=== PATIENT | male | born 1965 | race Caucasian/White ===

== ENCOUNTER 2021-01-15 11:02 | Outpatient (REF) | payer OTHER, SELFPAY ==
[2021-01-15 11:45] LABS: MANUAL DIFF FLAG NO
[2021-01-15 11:53] LABS: Basophils Absolute Auto 0.1 X10*3/uL (0.0-0.2); Basophils Percent Auto 0.9 % (0-2); Eosinophils Absolute Auto 0.4 X10*3/uL (0.0-0.4); Eosinophils Percent Auto 6.5 % (0-4); Hematocrit 44.5 % (42-52); Hemoglobin 14.5 g/dl (14.0-18.0); Imm Gran Abs Auto 0.02 X10*3/uL (0.00-0.03); Imm Gran Pct Auto 0.4 % (0.0-0.4); Lymphocytes Absolute Auto 2.5 X10*3/uL (1.2-4.9); Lymphocytes Percent Auto 45.3 % (20-40); Mean Corpuscular HGB Conc 32.6 g/dl (31.0-36.0); Mean Corpuscular Hemoglobin 30.7 pg (27.0-33.0); Mean Corpuscular Volume 94.1 fL (80-98); Mean Platelet Volume 10.4 fL (9.4-12.4); Monocytes Absolute Auto 0.5 X10*3/uL (0.1-1.2); Monocytes Percent Auto 9.7 % (2-11); Neutrophils Absolute Auto 2.1 X10*3/uL (2.0-8.3); Neutrophils Percent Auto 37.2 % (45-73); Platelet Count 229 X10*3/uL (160-400); Red Blood Count 4.73 X10*6/uL (4.60-5.80); White Blood Count 5.5 X10*3/uL (4.8-10.8)
[2021-01-15 12:10] LABS: Alanine Aminotransferase 22 U/L (0-40); Albumin Level 4.3 g/dL (3.5-5.0); Alkaline Phosphatase 68 U/L (39-117); Anion Gap 8 (12-20); Aspartate Amino Transferase 22 U/L (5-37); Bilirubin Total 0.7 mg/dL (0.0-1.0); Blood Urea Nitrogen 13 mg/dL (9-16); Calcium 9.7 mg/dL (8.4-10.2); Carbon Dioxide 33 mmol/L (22-29); Chloride 103 mmol/L (96-108); Cholesterol 258 mg/dL; Estimated Glomerular Filt Rate > 60; Glucose Fasting 113 mg/dL (60-99); HDL Cholesterol 86 mg/dL; LDL Cholesterol Calculated 142 mg/dl; Sodium 139 mmol/L (135-145); Total Protein 7.2 g/dL (6.5-8.0); Triglycerides 151 mg/dL
[2021-01-15 12:30] LABS: Prostate Specific Antigen Scr 0.42 ng/mL (<0.05-4.0); Thyroid Stimulating Hormone 1.24 uIU/mL (0.32-4.0)
== END 2021-01-15 11:03 | disposition home or self-care (01) ==
LOC: HO.LAB 11:02
PROVIDERS: PCP Physician Assistant; Visit Provider Physician Assistant
DX: J45.40 Moderate persistent asthma, uncomplicated (principal); E78.00 Pure hypercholesterolemia, unspecified; Z12.5 Encounter for screening for malignant neoplasm of prostate
CPT/HCPCS: 36415; 80053; 80061; 84153; 84443; 85025

== ENCOUNTER 2021-05-15 08:58 | Outpatient (REF) | payer OTHER, SELFPAY ==
[2021-05-15 10:01] LABS: Hematocrit 43.6 % (42-52); Hemoglobin 14.3 g/dl (14.0-18.0); Mean Corpuscular HGB Conc 32.8 g/dl (31.0-36.0); Mean Corpuscular Hemoglobin 31.1 pg (27.0-33.0); Mean Corpuscular Volume 94.8 fL (80-98); Mean Platelet Volume 10.6 fL (9.4-12.4); Platelet Count 257 X10*3/uL (160-400); Red Cell Distribution Width 12.4 % (11.0-16.0); White Blood Count 6.5 X10*3/uL (4.8-10.8)
[2021-05-15 10:22] LABS: Alanine Aminotransferase 29 U/L (0-40); Albumin Level 4.4 g/dL (3.5-5.0); Alkaline Phosphatase 69 U/L (39-117); Anion Gap 12 (12-20); Aspartate Amino Transferase 29 U/L (5-37); Bilirubin Total 0.6 mg/dL (0.0-1.0); Blood Urea Nitrogen 12 mg/dL (9-16); Calcium 9.8 mg/dL (8.4-10.2); Carbon Dioxide 31 mmol/L (22-29); Chloride 102 mmol/L (96-108); Cholesterol 255 mg/dL; Estimated Glomerular Filt Rate > 60; Glucose Fasting 111 mg/dL (60-99); HDL Cholesterol 100 mg/dL; LDL Cholesterol Calculated 138 mg/dl; Potassium 4.7 mmol/L (3.3-5.1); Sodium 140 mmol/L (135-145); Total Protein 7.2 g/dL (6.5-8.0); Triglycerides 87 mg/dL
[2021-05-15 10:44] LABS: TSH reflex Free T4 0.92 uIU/mL (0.32-4.0)
== END 2021-05-15 08:59 | disposition home or self-care (01) ==
LOC: HO.LAB 08:58
PROVIDERS: PCP Physician Assistant; Visit Provider Physician Assistant
DX: E78.9 Disorder of lipoprotein metabolism, unspecified (principal); I10 Essential (primary) hypertension
CPT/HCPCS: 36415; 80053; 80061; 84443; 85027

== ENCOUNTER 2022-07-27 06:11 | Outpatient (REF) | payer OTHER, SELFPAY ==
[2022-07-27 07:19] LABS: Hematocrit 41.5 % (42.0-52.0); Hemoglobin 13.7 g/dl (14.0-18.0); Mean Corpuscular Hemoglobin 31.4 pg (27.0-33.0); Mean Corpuscular Volume 95.2 fL (80.0-98.0); Mean Platelet Volume 10.6 fL (9.4-12.4); Platelet Count 241 X10*3/uL (160-400); Red Blood Count 4.36 X10*6/uL (4.60-5.80); Red Cell Distribution Width 11.8 % (11.0-16.0); White Blood Count 5.7 X10*3/uL (4.8-10.8)
[2022-07-27 08:11] LABS: Alanine Aminotransferase 40 U/L (0-40); Alkaline Phosphatase 76 U/L (39-117); Anion Gap 15 (12-20); Aspartate Amino Transferase 70 U/L (5-37); Bilirubin Total 0.5 mg/dL (0.0-1.0); Blood Urea Nitrogen 10 mg/dL (9-16); Calcium 9.7 mg/dL (8.4-10.2); Carbon Dioxide 32 mmol/L (22-29); Chloride 99 mmol/L (96-108); Cholesterol 224 mg/dL; Estimated Glomerular Filt Rate > 60; Glucose Fasting 99 mg/dL (60-99); HDL Cholesterol 77 mg/dL; LDL Cholesterol Calculated 125 mg/dl; Potassium 4.4 mmol/L (3.3-5.1); Sodium 142 mmol/L (135-145); Total Protein 6.7 g/dL (6.5-8.0); Triglycerides 114 mg/dL
[2022-07-27 08:14] LABS: Estimated Average Glucose 108 mg/dL; Hemoglobin A1c % 5.4 %
[2022-07-27 08:18] LABS: TSH reflex Free T4 1.22 uIU/mL (0.32-4.0)
== END 2022-07-27 06:12 | disposition home or self-care (01) ==
LOC: HO.LAB 06:11
PROVIDERS: PCP Physician Assistant; Visit Provider Physician Assistant
DX: E78.9 Disorder of lipoprotein metabolism, unspecified (principal); J42 Unspecified chronic bronchitis; R73.09 Other abnormal glucose
CPT/HCPCS: 36415; 80053; 80061; 83036; 84443; 85027

== ENCOUNTER 2022-08-06 08:21 | Day surgery (SDC) | payer OTHER, SELFPAY ==
[2022-08-03 09:29] VITALS: BMI 23.9
--- NOTE | 2022-08-05 10:17 | HO.ANESPROP2 ---
Documented by User: Jacinta Porter NP 08/05/22 10:18 HPI - Anesthesia Eval Consult details Narrative: 57yo M for Colonoscopy PMFSH Active Problems Active Problems: All Active Problems (Updated 08/03/22 @ 09:28 by Brittni Barillas RN) Annual physical exam (Acute) COPD (chronic obstructive pulmonary disease) (Acute) Eczema (Acute) Onychomycosis (Acute) Borderline high cholesterol (Acute) Herpes simplex (Acute) Impaired glucose metabolism (Acute) Rash (Acute) GERD (gastroesophageal reflux disease) (Acute) Former smoker (Acute) Tubular adenoma of colon (Acute) Allergic rhinitis (Acute) Elevated LFTs (Acute) Past Medical History Medical History (Updated 08/03/22 @ 09:28 by Brittni Barillas RN) Asthma Back pain COPD (chronic obstructive pulmonary disease) GERD (gastroesophageal reflux disease) Family History Family History Father Alzheimer disease Surgical History Surgical History (Updated 08/03/22 @ 09:28 by Brittni Barillas RN) H/O colonoscopy History of esophagogastroduodenoscopy (EGD) Social History Social History Housing: House Alcohol intake: current Alcohol intake frequency: a few times a week Alcohol type: beer Patient Tobacco Use Status: Former Tobacco user (11/2020) Quit Date: 2020 e-Cigarette/Vaping Use: Never Used Second Hand Smoke Exposure: No Advance Directives: No Advance Directives Information Provided: Yes service: No Current occupational status: employed Current occupation: [employer] Current occupational exposures/hazards: No Cognitive needs: No Hearing needs: No Vision needs: No Meds Allergies Allergy/AdvReac Type Severity Reaction Status Date / Time No Known Allergies Allergy Verified 07/28/22 08:37 Home Medications Medication Instructions Recorded Confirmed Last Taken Type multivitamin 1 tab PO DAILY 08/03/22 08/03/22 Unknown History omeprazole 40 mg capsule,delayed 40 mg PO DAILY 08/03/22 08/03/22 Unknown History release Exam Exam Date and Time: August 05, 2022 1017 Height,Weight and Vital Signs: Height 5 ft 10 in Weight 75.75 kg Pertinent Lab Results Pertinent Lab Results: Laboratory Tests 07/27/22 07/27/22 06:26 06:26 WBC 5.7 Hgb 13.7 L Hct 41.5 L Plt Count 241 Sodium 142 Potassium 4.4 Chloride 99 Carbon Dioxide 32 H BUN 10 Creatinine 0.97 Assessment and Plan Assessment Anesthesia Assessment: Chart Reviewed Documented by User: Faith Bernard MD 08/06/22 08:55 [facility] Past Medical History Medical History (Updated 08/03/22 @ 09:28 by Brittni Barillas RN) Asthma Back pain COPD (chronic obstructive pulmonary disease) GERD (gastroesophageal reflux disease) Family History Family History Father Alzheimer disease Family history of problems with anesthesia: No Surgical History Surgical History (Updated 08/03/22 @ 09:28 by Brittni Barillas RN) H/O colonoscopy History of esophagogastroduodenoscopy (EGD) History of Problems with Anesthesia: No Social History Social History Housing: House Alcohol intake: current Alcohol intake frequency: a few times a week Alcohol type: beer Patient Tobacco Use Status: Former Tobacco user (11/2020) Quit Date: 2020 e-Cigarette/Vaping Use: Never Used Second Hand Smoke Exposure: No Advance Directives: No Advance Directives Information Provided: Yes service: No Current occupational status: employed Current occupation: [employer] Current occupational exposures/hazards: No Cognitive needs: No Hearing needs: No Vision needs: No Meds Allergies Allergy/AdvReac Type Severity Reaction Status Date / Time No Known Allergies Allergy Verified 07/28/22 08:37 Home Medications Medication Instructions Recorded Confirmed Last Taken Type multivitamin 1 tab PO DAILY 08/03/22 08/03/22 Unknown History omeprazole 40 mg capsule,delayed 40 mg PO DAILY 08/03/22 08/03/22 Unknown History release Exam Airway Mallampati Class: II TM Dist: >3cm Neck ROM: Full Assessment and Plan Assessment Anesthesia Assessment: Anesthesia Plan Discussed Final Anesthetic Review Family History of Problems with Anesthesia: No History of Problems with Anesthesia: No NPO: Yes ASA Class: II Final Preanesthetic Review: No Changes in Pt Med Stat, Meds/Allgs Chart Reviewed, Consent Obtained/Reviewed and Anes Risks/Benef Reviewed Patient Risk: Intermediate Procedure Risk: Low Anesthetic Plan Anesthetic Plan: MAC: Disposition: Standard PACU
[2022-08-06 09:01] VITALS: BP 134/84; PULSE 84; RESP 18; TEMP 36.6; O2SAT 95
[2022-08-06 10:20] VITALS: BP 110/64; PULSE 71; RESP 16; TEMP 36.6; O2SAT 97
--- NOTE | 2022-08-06 10:21 | PM.OP ---
Brief Operative Note Date of Service: 08/06/22 Pre-op diagnosis: Screening Post-op diagnosis: other (Diverticulosis) Procedure: Colonoscopy to the cecum Surgeon: Richar Talbot Anesthesia: MAC Was an Reel Cutter used for this Procedure?: No Estimated blood loss (mL): 0 Pathology: none sent Condition: stable Disposition: PACU
[2022-08-06 10:35] VITALS: BP 129/79; PULSE 66; RESP 14; TEMP 36.6; O2SAT 97
--- NOTE | 2022-08-06 11:13 | OP_ITS ---
SURGEON: Richar Talbot MD INDICATIONS: The patient presents for evaluation of colorectal cancer screening and personal history of tubular adenoma of the colon. Full consent has been obtained from him for this, including risks of bleeding and perforation. PREOPERATIVE DIAGNOSIS: Personal history of tubular adenoma of the colon and colorectal cancer screening. POSTOPERATIVE DIAGNOSIS: PROCEDURE PERFORMED: Colonoscopy to the cecum. ESTIMATED BLOOD LOSS: COMPLICATIONS: ANESTHESIA: Monitored anesthesia care. ASSISTANTS: SPECIMENS: POSTOPERATIVE DIAGNOSES: Personal history of tubular adenoma of the colon and colorectal cancer screening, diverticulosis, and internal hemorrhoids. DESCRIPTION OF PROCEDURE: The patient was placed in the left lateral decubitus position. The digital rectal exam revealed no abnormalities. The Olympus video pediatric colonoscope was entered into the rectum and advanced to the cecum with the assistance of abdominal pressure. Once in the cecum, I did identify a normal-appearing cecal pouch with appendiceal orifice and a normal-appearing ileocecal valve. The entire cecum and ileocecal valve were well visualized and appeared normal. The scope was slowly withdrawn assessing all mucosal surfaces carefully. Preparation throughout the colon was very good, although there were some areas of liquid stool, which were irrigated and suctioned away as best as possible. I did not visualize any sign of polyps, colitis, or angiodysplasia. The proximal ascending colon did not seem to have any residual polyp tissue from his previous polypectomies. There was a mild amount of sigmoid diverticulosis. In the rectum, the scope was retroflexed visualizing internal hemorrhoids but no other pathology. The rectal mucosa appeared normal. The scope was straightened and withdrawn from the patient. He tolerated the procedure well and was returned to the recovery area in stable condition. IMPRESSION: 1. Diverticulosis. 2. Internal hemorrhoids. PLAN: I would recommend a repeat colonoscopy in 3 years for further surveillance given the previous history of the flat tubular adenoma. He would see me otherwise on a p.r.n. basis. Richar Talbot MD RMIsabel/GRZEGORZL / [id number]
== END 2022-08-06 11:15 | disposition home or self-care (01) ==
PROVIDERS: PCP Physician Assistant; Visit Provider Internal Medicine
PROC: 0DJD8ZZ Inspection of Lower Intestinal Tract, Via Natural or Artificial Opening Endoscopic (ICD-10-PCS; CPT 45378; principal; 2022-08-06 09:30)
DX: Z12.11 Encounter for screening for malignant neoplasm of colon (principal); Z86.010 Personal history of colon polyps; K57.30 Diverticulosis of large intestine without perforation or abscess without bleeding; K64.8 Other hemorrhoids; K21.9 Gastro-esophageal reflux disease without esophagitis; J44.9 Chronic obstructive pulmonary disease, unspecified; M54.9 Dorsalgia, unspecified; G89.29 Other chronic pain; Z79.51 Long term (current) use of inhaled steroids; Z79.899 Other long term (current) drug therapy; Z87.891 Personal history of nicotine dependence
CPT/HCPCS: 45378

== ENCOUNTER 2023-02-16 07:09 | Outpatient (REF) | payer OTHER, SELFPAY ==
[2023-02-16 07:35] LABS: Hematocrit 41.7 % (42.0-52.0); Hemoglobin 13.9 g/dl (14.0-18.0); Mean Corpuscular HGB Conc 33.3 g/dl (31.0-36.0); Mean Corpuscular Hemoglobin 31.4 pg (27.0-33.0); Mean Corpuscular Volume 94.1 fL (80.0-98.0); Mean Platelet Volume 9.7 fL (9.4-12.4); Platelet Count 274 X10*3/uL (160-400); Red Blood Count 4.43 X10*6/uL (4.60-5.80); Red Cell Distribution Width 12.4 % (11.0-16.0)
[2023-02-16 08:04] LABS: Alanine Aminotransferase 25 U/L (0-40); Albumin Level 4.3 g/dL (3.5-5.0); Alkaline Phosphatase 83 U/L (39-117); Anion Gap 10 (12-20); Aspartate Amino Transferase 28 U/L (5-37); Bilirubin Total 0.9 mg/dL (0.0-1.0); Blood Urea Nitrogen 12 mg/dL (9-16); Calcium 9.6 mg/dL (8.4-10.2); Carbon Dioxide 31 mmol/L (22-29); Chloride 105 mmol/L (96-108); Cholesterol 233 mg/dL; Estimated Glomerular Filt Rate > 60; Glucose Fasting 104 mg/dL (60-99); HDL Cholesterol 84 mg/dL; LDL Cholesterol Calculated 120 mg/dl; Potassium 4.3 mmol/L (3.3-5.1); Sodium 142 mmol/L (135-145); Triglycerides 145 mg/dL
[2023-02-16 08:23] LABS: Prostate Specific Antigen Scr 0.24 ng/mL (<0.05-4.0); TSH reflex Free T4 2.23 uIU/mL (0.32-4.0)
== END 2023-02-16 07:10 | disposition home or self-care (01) ==
LOC: HO.LAB 07:09
PROVIDERS: PCP Physician Assistant; Visit Provider Physician Assistant
DX: E78.9 Disorder of lipoprotein metabolism, unspecified (principal); R73.09 Other abnormal glucose; K21.9 Gastro-esophageal reflux disease without esophagitis; Z12.5 Encounter for screening for malignant neoplasm of prostate
CPT/HCPCS: 36415; 80053; 80061; 84153; 84443; 85027

== ENCOUNTER 2023-08-22 07:46 | Outpatient (REF) | payer OTHER, SELFPAY ==
[2023-08-22 08:32] LABS: Hematocrit 41.4 % (42.0-52.0); Hemoglobin 13.8 g/dl (14.0-18.0); Mean Corpuscular HGB Conc 33.3 g/dl (31.0-36.0); Mean Corpuscular Hemoglobin 31.7 pg (27.0-33.0); Mean Platelet Volume 10.5 fL (9.4-12.4); Platelet Count 266 X10*3/uL (160-400); Red Blood Count 4.36 X10*6/uL (4.60-5.80); Red Cell Distribution Width 12.2 % (11.0-16.0); White Blood Count 6.1 X10*3/uL (4.8-10.8)
[2023-08-22 09:08] LABS: Creatinine Urine 332.76 mg/dL; Microalbum/Creatinine Ratio Ur 2.7 ug/mg cr (<30)
[2023-08-22 09:11] LABS: Alanine Aminotransferase 16 U/L (0-40); Albumin Level 4.2 g/dL (3.5-5.0); Alkaline Phosphatase 78 U/L (39-117); Anion Gap 12 (12-20); Aspartate Amino Transferase 21 U/L (5-37); Bilirubin Total 0.4 mg/dL (0.0-1.0); Blood Urea Nitrogen 12 mg/dL (9-16); Calcium 9.6 mg/dL (8.4-10.2); Carbon Dioxide 30 mmol/L (22-29); Chloride 105 mmol/L (96-108); Cholesterol 207 mg/dL (<200); Estimated Glomerular Filt Rate > 60; Glucose Fasting 105 mg/dL (60-99); HDL Cholesterol 83 mg/dL (>40); LDL Cholesterol Calculated 107 mg/dL (<100); Potassium 3.9 mmol/L (3.3-5.1); Sodium 143 mmol/L (135-145); Triglycerides 88 mg/dL (<150)
== END 2023-08-22 07:47 | disposition home or self-care (01) ==
LOC: HO.LAB 07:46
PROVIDERS: PCP Physician Assistant; Visit Provider Physician Assistant
DX: E78.9 Disorder of lipoprotein metabolism, unspecified (principal); I10 Essential (primary) hypertension
CPT/HCPCS: 36415; 80053; 80061; 82043; 82570; 85027

== ENCOUNTER 2023-08-23 07:46 | Outpatient (AMB) | payer OTHER, SELFPAY ==
--- NOTE | 2023-08-23 07:53 | MHC.PC.OV ---
Vital Signs 08/23/23 07:54 Height 5 ft 10 in Weight 163 lb BMI 23.4 BP 144/82 H Blood Pressure Location Lt brachial Position Sitting Pulse 78 Pulse Source Pulse Oximeter Pulse Oximetry (%) 98 Oxygen Delivery Method Room Air Intake Visit Reasons: Annual Exam Allergies No Known Allergies Allergy (Verified 08/23/23 08:01) Medication List - Last Reconciled 08/23/23 by Luke Alvarez PA-C albuterol sulfate 90 mcg/actuation 2 puffs inhalation Q4-6H PRN 30 days albuterol sulfate 2.5 mg (3 mL) inhalation Q6H PRN 30 days lisinopril 5 mg PO DAILY 30 days montelukast 10 mg PO DAILY 90 days multivitamin 1 tab PO DAILY omeprazole 40 mg PO DAILY Tobacco use date assessed: 02/17/23 Dental Screening Dental Screen Date: 08/23/23 Did you have a dental visit in the last 12 months?: No Did you have a dental problem in the last 6 months where you did not have access to dental care?: No Was dental information given to patient?: Patient has dentist HPI Annual Exam HPI Details Patient is a 58-year-old male here today for routine annual physical.? Patient has a past medical history significant for COPD, former smoker, GERD.. Concern--> reports over the last nearly 2 weeks having nasal congestion and sinus pain. Has been using [id number] allergy medication and nasal spray without much relief. Hypertension: Noted slightly elevated blood pressure today in office. He was started on lisinopril 5 mg though has for ran out of medication over the last few days and has not been taking it. He denies any headaches, chest discomforts or shortness of breath. .. COPD: Report his breathing is stable. Has been abstaining from cig over the last 3 years.? Has been compliant with his maintenance inhaler and p.r.n. use of his albuterol inhaler. Reports allergic rhinitis symptoms it has been using [id number] antihistamines ? Decongestant. .. Former smoker:? Did smoke for little over 20 years, unclear if he has smoked a pack a day.? He is likely a candidate for lung cancer screening and is considering being referred.? Colonoscopy: Done in 2021, repeat 3 years for surveillance Vaccines: Up-to-date with COVID vaccine , needs tetanus vaccine, up-to-date with pneumonia vaccine, considering shingles and flu vaccine Laboratory Tests 02/16/23 02/16/23 02/16/23 07:15 07:15 07:15 RBC Hgb Creatinine Fasting Glucose 104 H Cholesterol 233 LDL Cholesterol, C alc 120 08/22/23 08/22/23 08/22/23 07:57 07:57 07:57 RBC 4.36 L Hgb 13.8 L Creatinine 0.93 Fasting Glucose 105 H Cholesterol 207 H LDL Cholesterol, C alc 107 H [facility] Medical History Elevated LFTs GERD (gastroesophageal reflux disease) Back pain COPD (chronic obstructive pulmonary disease) Asthma Surgical History History of esophagogastroduodenoscopy (EGD) H/O colonoscopy Family History Father Alzheimer disease Social History (Updated 08/23/23 @ 08:08 by Luke Alvarez PA-C) Housing: House 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 Do you presently have visiting nurse or other home services: No Alcohol intake: current Alcohol intake frequency: 0-2 drinks per day Alcohol type: beer Patient Tobacco Use Status: Former Tobacco user Quit Date: 2020 Tobacco use type: Cigarette e-Cigarette/Vaping Use: Never Used Second Hand Smoke Exposure: No service: No Current occupational status: employed Current occupation: [employer] Current occupational exposures/hazards: No Cognitive needs: No Hearing needs: No Vision needs: No Questionnaire PHQ-9 Over the last 2 weeks, how often have you been bothered by any of the following problems? 1. Little interest or pleasure in doing things: not at all 2. Feeling down, depressed, or hopeless: not at all 3. Trouble falling or staying asleep, or sleeping too much: not at all 4. Feeling tired or having little energy: not at all 5. Poor appetite or overeating: not at all 6. Feeling bad about yourself - or that you are a failure or have let yourself or your family down: not at all 7. Trouble concentrating on things, such as reading the newspaper or watching television: not at all 8. Moving or speaking so slowly that other people could have noticed. Or the opposite - being so fidgety or restless that you have been moving around a lot more than usual: not at all 9. Thoughts that you would be better off or of hurting yourself in some way: not at all Total score: 0 Depression Screening Interpretation: Negative Depression Screening Done: Yes 17474 - PHQ-9 Billing: Yes Source: Developed by Drs. Richar Zuniga, Vicenta Lopez, Ghanshyam Karimi and colleagues, with an educational amanda from [employer]. Thrive Questionnaire Date Thrive assessed: 02/17/23 AUDIT C Alcohol Use Questionnaire (AUDIT-C) 1. How often do you have a drink containing alcohol?: Monthly or less 2. How many drinks containing alcohol do you have on a typical day when you are drinking?: 1 or 2 3. How often do you have six or more drinks on one occasion?: Never Total Score: 1 JESSICA-7 AMB Questionnaire JESSICA-7 Date JESSICA - 7 assessed: 02/17/23 Source: Developed by Drs. Richar Zuniga, Vicenta Lopez, Ghanshyam Karimi and colleagues, with an educational amanda from [employer]. Review of Systems Const Denies body aches, Denies chills, Denies excessive sweating, Denies fatigue, Denies fever(s) and Denies headache(s) Eyes Denies blurry vision ENT Denies dysphagia, Denies vertigo, Denies dizziness, Denies headache(s), Denies hearing loss and Denies tinnitus Card Denies chest pain, Denies chest pain with activity, Denies syncope, Denies irregular heart rhythm and Denies dyspnea Resp Denies chest congestion, Denies cough, Denies hemoptysis, Denies dyspnea and Denies wheezing GI Denies abdominal pain, Denies melena, Denies hematochezia, Denies coffee ground emesis, Denies dysphagia, Denies diarrhea, Denies nausea and Denies vomiting Denies difficulty urinating, Denies dysuria, Denies urinary frequency, Denies urinary hesitancy and Denies urinary urgency Musc Denies arthralgias, Denies limited range of motion, Denies muscle cramps and Denies muscle weakness Skin/Breast Denies rash and Denies skin ulcer Neuro Denies Abnormal speech present, Denies confusion, Denies vertigo, Denies dizziness, Denies syncope, Denies headache(s), Denies memory loss and Denies seizure-like activity Psych Denies anxiety, Denies confusion, Denies depression, Denies memory loss, Denies panic attacks and Denies paranoia Endo Denies excessive sweating, Denies fatigue, Denies flushing, Denies polydipsia and Denies polyuria Aller/Immun Denies wheezing Physical exam (Primary Care) Vital Signs: Last Vital Signs Pulse 78 08/23/23 07:54 BP 144/82 H 08/23/23 07:54 Pulse Ox 98 08/23/23 07:54 Oxygen Delivery Method Room Air 08/23/23 07:54 BMI result Body Mass Index 23.4 Tobacco/Smoking Status: Tobacco use Status Tobacco use date assessed 02/17/23 08/23/23 07:57 Patient Tobacco Use Status Former Tobacco user 08/23/23 07:57 Tobacco use type Cigarette 08/23/23 07:57 e-Cigarette/Vaping Use Never Used 08/23/23 07:57 PHQ-9: PHQ-9 Score PHQ-9: Total score 0 08/23/23 07:57 Depression Screening Interpretation: Negative Thrive Assessment: Date of Thrive Assessment Date Thrive assessed 02/17/23 08/23/23 07:57 Const General: cooperative, comfortable, no acute distress, alert and awake; No confusion Orientation/consciousness: oriented to person, oriented to place, patient oriented x3 and No confusion HENMT Head: Yes normocephalic Ears: external ears normal and TM's normal bilaterally Face and sinus: No sinus tenderness Mouth: Normal oral and palatal mucosa present and tongue normal Teeth and gingiva: dentition normal and gingiva normal Throat: Yes posterior oropharynx normal, Yes tonsils normal and Yes uvula midline Eyes Conjunctivae: conjunctivae normal Sclerae: sclerae normal Pupils: Equal, round and reactive pupils present EOM: EOMs intact bilaterally Direct Ophthalmoscopy: No no photophobia Neck Neck: Yes no lymphadenopathy, No tender and Yes no JVD Thyroid: Thyroid normal Carotids: no bruits Chest Chest palpation & inspection: no tenderness Resp Effort & Inspection: normal respiratory effort, no audible wheezes, not labored and no stridor Auscultation: no crackles, no rales, no rhonchi and no wheezes Cardio Jugular venous distension: no JVD Rate: regular rate, not bradycardic and not tachycardic Rhythm: regular rhythm Bruits: no carotid bruits Peripheral pulses: Peripheral pulses 2+ throughout GI Inspection: Yes normal to inspection, No abdominal wall ecchymosis and No visible herniation Palpation (GI): Soft to palpation, nontender, no guarding, not rigid and No hepatosplenomegaly present Auscultation: normoactive bowel sounds General: Yes no CVA tenderness Back/Spine/Pelvis Back: no CVA tenderness and No back tenderness Cervical Spine: cervical ROM normal Thoracic/Lumbar Spine: thoracic and lumbar spine normal to inspection, straight leg raise negative bilaterally, No thoraco-lumbar ROM limited and No lumbar spinal tenderness Skin Lesions: no lesions Rashes: no rashes Wounds: no wounds Neuro General: oriented to person, oriented to place, patient oriented x3, CN's II-XI intact bilaterally and No confusion Cranial nerves: Yes Equal, round and reactive pupils present and Yes Normal accommodation reflex present Cognition (Neuro): normal cognition Speech: No Abnormal speech present Gait exam (Neuro): Normal gait present Motor exam (neuro): 5/5 motor strength present throughout Extrem Right upper extremity: full ROM; no cyanosis Left upper extremity: full ROM; no cyanosis Right lower extremity: no edema Left lower extremity: no edema Psych Appearance: grossly normal Mental Status: mental status grossly normal Affect: normal affect Attitude: cooperative Thought process: Normal thought process present Assessment and Plan Assessment & Plan (1) Annual physical exam: Code(s): Z00.00 - Encounter for general adult medical examination without abnormal findings (2) COPD (chronic obstructive pulmonary disease): Code(s): J44.9 - Chronic obstructive pulmonary disease, unspecified Qualifiers: COPD type: chronic bronchitis Chronic bronchitis type: unspecified Qualified Code(s): J42 - Unspecified chronic bronchitis Plan: Patient reports only taking albuterol inhaler from time to time due to change in weather allergies. He does not taking maintenance inhaler any more. Pulmonary status has been much improved since he stopped smoking. Denies any recent exacerbations and is a OPD (3) HTN (hypertension): Code(s): I10 - Essential (primary) hypertension Qualifiers: Hypertension type: primary hypertension Qualified Code(s): I10 - Essential (primary) hypertension Plan: Pressure slightly elevated today in office. Has been out blood pressure medication over the last few days. He will restart lisinopril 5 mg daily. Goal blood pressures to be below 140/90 (4) Impaired glucose metabolism: Code(s): R73.09 - Other abnormal glucose Plan: Patient's most recent fasting blood sugar at 105. He will work on lifestyle modifications to reduce his borderline high fasting blood sugar.. (5) Borderline high cholesterol: Code(s): E78.9 - Disorder of lipoprotein metabolism, unspecified Plan: Patient's fasting lipid panel much improved from previous. Total cholesterol still slightly borderline high. Continue to work on lifestyle modifications to reduce his high cholesterol foods in his diet. (6) Sinus infection: Code(s): J32.9 - Chronic sinusitis, unspecified Qualifiers: Sinusitis location: frontal Chronicity: acute Recurrence: non-recurrent Qualified Code(s): J01.10 - Acute frontal sinusitis, unspecified Plan: Recently having nasal congestion and sinus pain over the last 10 days. Will supply patient with a Z-Connor and advised on nasal spray and allergy medication. Orders: Orders Complete Blood Count no Diff Today J42 - Unspecified chronic bronchitis Microalbumin, Random (w Creat) Today I10 - Essential (primary) hypertension Hemoglobin A1c Today R73.09 - Other abnormal glucose Lipid Panel Today E78.9 - Disorder of lipoprotein metabolism, unspecified Prostate Specific Antigen Scr Today E78.9 - Disorder of lipoprotein metabolism, unspecified, Z12.5 - Encounter for screening for malignant neoplasm of prostate Medications: New azithromycin For 250 mg dose pack: take 500 mg today (day 1), then 250 mg for 4 days (days 2-5) PO 6 tabs 0RF J32.9 - Chronic sinusitis, unspecified Changed From lisinopril 5 mg PO DAILY 30 days 30 tabs 3RF I10 - Essential (primary) hypertension To lisinopril 5 mg PO DAILY 90 days 90 tabs 1RF I10 - Essential (primary) hypertension From albuterol sulfate 90 mcg/actuation 2 puffs inhalation Q4-6H 30 days PRN 8.5 grams 3RF shortness of breath or wheezing J42 - Unspecified chronic bronchitis To albuterol sulfate 90 mcg/actuation 2 puffs inhalation Q4-6H 90 days PRN 3 inhalers 1RF shortness of breath or wheezing J42 - Unspecified chronic bronchitis Coding Level of Care Code Est Pt Prev Care 40-64y(87771) Diagnoses Annual physical exam Z00.00 Chronic bronchitis, unspecified chronic bronchitis type J42 COPD type: chronic bronchitis Chronic bronchitis type: unspecified Primary hypertension I10 Hypertension type: primary hypertension Impaired glucose metabolism R73.09 Borderline high cholesterol E78.9 Acute non-recurrent frontal sinusitis J01.10 Sinusitis location: frontal Chronicity: acute Recurrence: non-recurrent
[2023-08-23 07:54] VITALS: BP 144/82; PULSE 78; O2SAT 98; BMI 23.4
== END 2023-08-23 08:22 | disposition home or self-care (01) ==
PROVIDERS: PCP Physician Assistant; Visit Provider Physician Assistant
DX: Z00.00 Encounter for general adult medical examination without abnormal findings (principal); J42 Unspecified chronic bronchitis; I10 Essential (primary) hypertension; R73.09 Other abnormal glucose; E78.9 Disorder of lipoprotein metabolism, unspecified; J01.10 Acute frontal sinusitis, unspecified
CPT/HCPCS: 99396

== ENCOUNTER 2024-02-21 09:13 | Outpatient (REF) | payer OTHER, SELFPAY ==
[2024-02-21 09:52] LABS: Hematocrit 39.3 % (42.0-52.0); Hemoglobin 13.2 g/dl (14.0-18.0); Mean Corpuscular HGB Conc 33.6 g/dl (31.0-36.0); Mean Corpuscular Hemoglobin 31.6 pg (27.0-33.0); Mean Platelet Volume 10.2 fL (9.4-12.4); Platelet Count 212 X10*3/uL (160-400); Red Blood Count 4.18 X10*6/uL (4.60-5.80); Red Cell Distribution Width 12.2 % (11.0-16.0)
[2024-02-21 10:10] LABS: Estimated Average Glucose 117 mg/dL; Hemoglobin A1c % 5.7 % (<6.0)
[2024-02-21 10:38] LABS: Cholesterol 227 mg/dL (<200); HDL Cholesterol 102 mg/dL (>40); LDL Cholesterol Calculated 113 mg/dL (<100); Triglycerides 62 mg/dL (<150)
[2024-02-21 10:47] LABS: Creatinine Urine 14.27 mg/dL; Microalbumin Urine < 5.0 mg/L
[2024-02-21 11:02] LABS: Prostate Specific Antigen Scr 0.27 ng/mL (<0.05-4.0)
== END 2024-02-21 09:14 | disposition home or self-care (01) ==
LOC: HO.LAB 09:13
PROVIDERS: Visit Provider Physician Assistant
DX: Z12.5 Encounter for screening for malignant neoplasm of prostate (principal); J42 Unspecified chronic bronchitis; R73.09 Other abnormal glucose; E78.9 Disorder of lipoprotein metabolism, unspecified; R42 Dizziness and giddiness
CPT/HCPCS: 36415; 80061; 82043; 82570; 83036; 84153; 85027

== ENCOUNTER 2024-02-22 07:45 | Outpatient (AMB) | payer OTHER, SELFPAY ==
--- NOTE | 2024-02-22 07:49 | A.OFFPC_ITS ---
Vital Signs 02/22/24 07:50 Height 5 ft 10 in Weight 162 lb BMI 23.2 BP 150/78 H Blood Pressure Location Lt brachial Position Sitting Pulse 91 Pulse Source Pulse Oximeter Pulse Oximetry (%) 97 Oxygen Delivery Method Room Air Intake Visit Reasons: f/u COPD / HTN Intake Note: Patient just finished drinking coffee. Allergies No Known Allergies Allergy (Verified 02/22/24 07:59) Medication List - Last Reconciled 02/22/24 by Luke Alvarez PA-C albuterol sulfate 90 mcg/actuation 2 puffs inhalation Q4-6H PRN 90 days albuterol sulfate 2.5 mg (3 mL) inhalation Q6H PRN 30 days lisinopril 5 mg PO DAILY 90 days montelukast 10 mg PO DAILY 90 days multivitamin 1 tab PO DAILY omeprazole 40 mg PO DAILY Tobacco use date assessed: 02/22/24 Dental Screening Dental Screen Date: 02/22/24 Did you have a dental visit in the last 12 months?: No Did you have a dental problem in the last 6 months where you did not have access to dental care?: No Was dental information given to patient?: Patient has dentist HPI f/u COPD / HTN HPI Details Patient is a 58-year-old male here today for follow-up visit.? Patient has a past medical history significant for COPD, former smoker, GERD.. Concern--> Has allergies and is combative with allergy medication in nasal saline spray Hypertension: Noted slightly elevated blood pressure today in office. Continues on lisinopril 5 mg, had a few cups of coffee this morning. Does not monitor his blood pressure at home is willing to start doing so. Will consider increasing his lisinopril to 10 mg if blood pressures remain above 140 systolic . He denies any headaches, chest discomforts or shortness of breath. .. Borderline high cholesterol: Most recent lipids showing borderline high cholesterol. Patient will work better eating habits to reduce his cholesterol .. COPD: Quit smoking in 2020, Report his breathing is stable. Continues to abstain from cigarette smoking. Has been compliant with his maintenance inhaler and p.r.n. use of his albuterol inhaler. .. Former smoker:? Quit smoking in 2020, Did smoke for little over 20 years, unclear if he has smoked a pack a day.? He is likely a candidate for lung cancer screening and is considering being referred. 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 Do you presently have visiting nurse or other home services: No Alcohol intake: current Alcohol intake frequency: 0-2 drinks per day Alcohol type: beer Patient Tobacco Use Status: Former Tobacco user Quit Date: 2020 Tobacco use type: Cigarette e-Cigarette/Vaping Use: Never Used Second Hand Smoke Exposure: No service: No Current occupational status: employed Current occupation: [employer] Current occupational exposures/hazards: No Cognitive needs: No Hearing needs: No Vision needs: Yes Questionnaire PHQ-9 Over the last 2 weeks, how often have you been bothered by any of the following problems? 1. Little interest or pleasure in doing things: not at all 2. Feeling down, depressed, or hopeless: not at all 3. Trouble falling or staying asleep, or sleeping too much: not at all 4. Feeling tired or having little energy: not at all 5. Poor appetite or overeating: not at all 6. Feeling bad about yourself - or that you are a failure or have let yourself or your family down: not at all 7. Trouble concentrating on things, such as reading the newspaper or watching television: not at all 8. Moving or speaking so slowly that other people could have noticed. Or the opposite - being so fidgety or restless that you have been moving around a lot more than usual: not at all 9. Thoughts that you would be better off or of hurting yourself in some way: not at all Total score: 0 Depression Screening Interpretation: Negative Depression Screening Done: Yes 61168 - PHQ-9 Billing: Yes Source: Developed by Drs. Richar Zuniga, Vicenta Lpoez, Ghanshyam Karimi and colleagues, with an educational amanda from [employer]. Thrive Questionnaire Date Thrive assessed: 02/22/24 I am a: Patient What is your living situation today?: I have a steady place to live Within the past 12 months, did the food you bought not last and you didn't have the money to get more?: Never true Within the past 12 months, did you worry whether your food would run out before you got money to buy more?: Never true Do you have trouble paying for medicines?: No Do you have trouble getting transportation to medical appointments?: No Do you have trouble paying your heating and electricity bill?: No Do you have trouble taking care of your child, family member or friend?: No Do you have trouble with day-to-day activities such as bathing, preparing meals, shopping, managing finances, etc.?: No Are you currently unemployed and looking for a job?: No Are you interested in more education?: No Currently or been in a relationship where the following occur: no concerns reported THRIVE Score: 0 AUDIT C Alcohol Use Questionnaire (AUDIT-C) 1. How often do you have a drink containing alcohol?: 2-3 times a week 2. How many drinks containing alcohol do you have on a typical day when you are drinking?: 3 or 4 3. How often do you have six or more drinks on one occasion?: Never Total Score: 4 JESSICA-7 AMB Questionnaire JESSICA-7 Date JESSICA - 7 assessed: 02/22/24 Feeling nervous, anxious, or on edge: 0 = Not at all Not being able to stop or control worryin = Not at all Worrying too much about different things: 0 = Not at all Trouble relaxin = Not at all Being so restless that it is hard to sit still: 0 = Not at all Becoming easily annoyed or irritable: 0 = Not at all Feeling afraid as if something awful might happen: 0 = Not at all Total JESSICA-7 score (0-4 normal; 5-9 mild; 10-14 moderate; 15-21 severe): 0 Source: Developed by Drs. Richar Zuniga, Vicenta Lopez, Ghanshyam Karimi and colleagues, with an educational amanda from [employer]. JESSICA-7 Assessment Billing JESSICA-7 Assessment Tool: JESSICA-7 Assessment 01180 Review of Systems Const Denies headache(s) Eyes Denies loss of vision ENT Denies vertigo, Denies dizziness, Denies headache(s) and Denies sore throat Card Denies chest pain, Denies leg edema and Denies lightheadedness Resp Denies cough, Denies hemoptysis and Denies wheezing GI Denies abdominal pain, Denies melena, Denies constipation, Denies diarrhea and Denies vomiting Denies dysuria, Denies urinary frequency and Denies urinary urgency Musc Denies arthralgias, Denies joint swelling, Denies numbness and Denies tingling Neuro Denies Abnormal speech present, Denies behavioral changes, Denies vertigo, Denies dizziness, Denies headache(s), Denies loss of vision, Denies memory loss, Denies numbness and Denies tingling Psych Denies anxiety, Denies behavioral changes, Denies depression, Denies memory loss and Denies panic attacks Bora/Lymph Denies easy bleeding and Denies easy bruising Aller/Immun Denies wheezing Physical exam (Primary Care) Vital Signs: Last Vital Signs Pulse 91 02/22/24 07:50 BP 150/78 H 02/22/24 07:50 Pulse Ox 97 02/22/24 07:50 Oxygen Delivery Method Room Air 02/22/24 07:50 BMI result Body Mass Index 23.2 Tobacco/Smoking Status: Tobacco use Status Tobacco use date assessed 02/22/24 02/22/24 07:55 Patient Tobacco Use Status Former Tobacco user 02/22/24 07:55 Tobacco use type Cigarette 02/22/24 07:55 e-Cigarette/Vaping Use Never Used 02/22/24 07:55 PHQ-9: PHQ-9 Score PHQ-9: Total score 0 02/22/24 07:55 Depression Screening Interpretation: Negative Thrive Assessment: Date of Thrive Assessment Date Thrive assessed 02/22/24 02/22/24 07:55 Currently or been in a relationship where the following occur: no concerns reported Const General: healthy appearing, no acute distress, alert and awake Nutritional Appearance: well nourished Orientation/consciousness: oriented to person, oriented to place and oriented to time HENMT Ears: TM's normal bilaterally General nose exam: Normal nasal mucous membranes and turbinates present Eyes Conjunctivae: conjunctivae normal Sclerae: sclerae normal Pupils: Equal, round and reactive pupils present Neck Neck: Yes no lymphadenopathy and Yes no JVD Thyroid: Thyroid normal Carotids: no bruits Resp Effort & Inspection: normal respiratory effort and not tachypneic Auscultation: no crackles, no rales, no rhonchi and no wheezes Cardio Rate: regular rate Rhythm: regular rhythm Heart sounds: no murmurs and normal S1 and S2 GI Palpation (GI): Soft to palpation, nontender, no hepatomegaly and no splenom egaly Auscultation: normal bowel sounds Skin General skin exam: no rashes or lesions noted and dry skin Neuro General: oriented to person, oriented to place and oriented to time Cranial nerves: Yes Equal, round and reactive pupils present Speech: No Abnormal speech present Gait exam (Neuro): Normal gait present Motor exam (neuro): no tremor noted Extrem Right upper extremity: full ROM Left upper extremity: full ROM Right lower extremity: full ROM; no edema Left lower extremity: full ROM; no edema Psych Mental Status: mental status grossly normal Speech and movement: Normal speech and movement present Affect: normal affect Attitude: cooperative Thought process: Normal thought process present Assessment and Plan Assessment & Plan (1) COPD (chronic obstructive pulmonary disease): Code(s): J44.9 - Chronic obstructive pulmonary disease, unspecified Qualifiers: COPD type: chronic bronchitis Chronic bronchitis type: unspecified Qualified Code(s): J42 - Unspecified chronic bronchitis Plan: Patient reports only taking albuterol inhaler from time to time due to change in weather allergies. He does not taking maintenance inhaler any more. Pulmonary status has been much improved since he stopped smoking. Denies any recent exacerbations and is a OPD (2) HTN (hypertension): Code(s): I10 - Essential (primary) hypertension Qualifiers: Hypertension type: primary hypertension Qualified Code(s): I10 - Essential (primary) hypertension Plan: Pressure slightly elevated today in office. Does report having coffee this morning. Does not regularly monitor his blood pressure at home and is willing to start doing so.. Will Consider increasing his lisinopril to 10 mg. Goal blood pressures to be below 140/90 (3) Impaired glucose metabolism: Code(s): R73.09 - Other abnormal glucose Plan: Patient's most recent fasting blood sugar at 105. He will work on lifestyle modifications to reduce his borderline high fasting blood sugar.. (4) Borderline high cholesterol: Code(s): E78.9 - Disorder of lipoprotein metabolism, unspecified Plan: Patient's fasting lipid panel continues to show borderline high cholesterol. Not interested in starting medication at this time. Continue to work on lifestyle modifications to reduce his high cholesterol foods in his diet. (5) Former smoker: Code(s): Z87.891 - Personal history of nicotine dependence Plan: Quit smoking in 2020. Continues to abstain from cigarettes. He reports his breathing has been much better. (6) Normocytic anemia: Code(s): D64.9 - Anemia, unspecified Plan: Noted mild anemia since 2021. Has had colonoscopies in his followed every 3 years due to history of tubular adenoma polyp. Likely dietary versus alcohol intake. Will continue to follow. Orders: Orders Lipid Panel 6 Months E78.9 - Disorder of lipoprotein metabolism, unspecified Complete Blood Count no Diff 6 Months K21.9 - Gastro-esophageal reflux disease without esophagitis Comprehensive [place]. Panel Fast 6 Months I10 - Essential (primary) hypertension Hemoglobin A1c 6 Months R73.09 - Other abnormal glucose Medications: Refilled albuterol sulfate 90 mcg/actuation 2 puffs inhalation Q4-6H 90 days PRN 3 inhalers 1RF shortness of breath or wheezing J42 - Unspecified chronic bronchitis Patient Instructions: Goals: Reduce total cholesterol below 200, continue to abstain from smoking, control blood pressure goal blood pressure to be below 140/90 Barriers: Dietary noncompliance, remembering to monitor blood pressure. Coding Level of Care Code Est Pt Level 4 (54129) Diagnoses Chronic bronchitis, unspecified chronic bronchitis type J42 COPD type: chronic bronchitis Chronic bronchitis type: unspecified Primary hypertension I10 Hypertension type: primary hypertension Impaired glucose metabolism R73.09 Borderline high cholesterol E78.9 Former smoker Z87.891 Normocytic anemia D64.9 Additional Codes JESSICA-7 Assessment Billing - JESSICA-7 Assessment Tool: JESSICA-7 Assessment 13079 ([id number])
[2024-02-22 07:50] VITALS: BP 150/78; PULSE 91; O2SAT 97; BMI 23.2
== END 2024-02-22 08:15 | disposition home or self-care (01) ==
PROVIDERS: PCP Physician Assistant; Visit Provider Physician Assistant
DX: J42 Unspecified chronic bronchitis (principal); I10 Essential (primary) hypertension; R73.09 Other abnormal glucose; E78.9 Disorder of lipoprotein metabolism, unspecified; Z87.891 Personal history of nicotine dependence; D64.9 Anemia, unspecified
CPT/HCPCS: 99214

== ENCOUNTER 2024-08-25 08:57 | Outpatient (REF) | payer OTHER, SELFPAY ==
[2024-08-25 10:03] LABS: Hematocrit 44.7 % (42.0-52.0); Hemoglobin 14.5 g/dl (14.0-18.0); Mean Corpuscular HGB Conc 32.4 g/dl (31.0-36.0); Mean Corpuscular Hemoglobin 31.4 pg (27.0-33.0); Mean Corpuscular Volume 96.8 fL (80.0-98.0); Mean Platelet Volume 10.2 fL (9.4-12.4); Platelet Count 274 X10*3/uL (160-400); Red Blood Count 4.62 X10*6/uL (4.60-5.80); Red Cell Distribution Width 13.5 % (11.0-16.0); White Blood Count 7.2 X10*3/uL (4.8-10.8)
[2024-08-25 10:19] LABS: Alanine Aminotransferase 14 U/L (0-40); Alkaline Phosphatase 77 U/L (39-117); Anion Gap 8 (12-20); Aspartate Amino Transferase 15 U/L (5-37); Bilirubin Total 0.6 mg/dL (0.0-1.0); Blood Urea Nitrogen 16 mg/dL (9-16); Calcium 9.2 mg/dL (8.4-10.2); Carbon Dioxide 33 mmol/L (22-29); Chloride 102 mmol/L (96-108); Cholesterol 242 mg/dL (<200); Estimated Glomerular Filt Rate > 60; Glucose Fasting 106 mg/dL (60-99); HDL Cholesterol 91 mg/dL (>40); LDL Cholesterol Calculated 135 mg/dL (<100); Potassium 4.1 mmol/L (3.3-5.1); Sodium 139 mmol/L (135-145); Total Protein 6.8 g/dL (6.5-8.0); Triglycerides 81 mg/dL (<150)
[2024-08-25 10:20] LABS: Estimated Average Glucose 111 mg/dL; Hemoglobin A1C 127.1968 umol/L; Hemoglobin A1c % 5.5 % (<6.0); Total Hemoglobin (HGBA1C) 3479.8637 umol/L
== END 2024-08-25 08:58 | disposition home or self-care (01) ==
LOC: HO.LAB 08:57
PROVIDERS: PCP Physician Assistant; Visit Provider Physician Assistant
DX: K21.9 Gastro-esophageal reflux disease without esophagitis (principal); E78.9 Disorder of lipoprotein metabolism, unspecified; I10 Essential (primary) hypertension; R73.09 Other abnormal glucose
CPT/HCPCS: 36415; 80053; 80061; 83036; 85027

== ENCOUNTER 2024-08-28 07:46 | Outpatient (AMB) | payer OTHER, SELFPAY ==
[2024-08-28 07:59] VITALS: BP 148/86; PULSE 81; O2SAT 97; BMI 22.0
--- NOTE | 2024-08-28 07:59 | MHC.PC.OV ---
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 Cell Operation Required: No Allergies No Known Allergies Allergy (Verified 08/28/24 08:11) Medication List - Last Reconciled 08/28/24 by Luke Alvarez PA-C albuterol sulfate 2.5 mg (3 mL) inhalation Q6H PRN 30 days albuterol sulfate 90 mcg/actuation 2 puffs inhalation Q4-6H PRN 90 days lisinopril 5 mg PO DAILY 90 days montelukast 10 mg PO DAILY 90 days multivitamin 1 tab PO DAILY omeprazole 40 mg PO DAILY Tobacco use date assessed: 02/22/24 Dental Screening Dental Screen Date: 08/28/24 Did you have a dental visit in the last 12 months?: No Did you have a dental problem in the last 6 months where you did not have access to dental care?: No HPI Annual Exam HPI Details Patient is a 59-year-old male here today for an annual physical.? Patient has a past medical history significant for COPD, former smoker, GERD.. Hypertension: Noted slightly elevated blood pressure today in office. Continues on lisinopril 5 mg, had a few cups of coffee this morning. Does not monitor his blood pressure at home is willing to start doing so. Will consider increasing his lisinopril to 10 mg if blood pressures remain above 140 systolic . He denies any headaches, chest discomforts or shortness of breath. .. Borderline high cholesterol: Most recent lipids showing high cholesterol -240. Patient admits to some dietary indiscretion. Patient will work better eating habits to reduce his cholesterol .. COPD: Quit smoking in 2020, Report his breathing is stable. Continues to abstain from cigarette smoking. Has been compliant with his maintenance inhaler and p.r.n. use of his albuterol inhaler. .. Former smoker:? Quit smoking in 2020, Did smoke for little over 20 years, unclear if he has smoked a pack a day.? He is likely a candidate for lung cancer screening and is considering being referred. Colonoscopy: Done in 2021, repeat 3 years for surveillance Vaccines: Up-to-date with COVID vaccine , needs tetanus vaccine, up-to-date with pneumonia vaccine, considering shingles and flu vaccine Laboratory Tests 02/21/24 02/21/24 08/25/24 09:25 09:26 09:20 RBC 4.62 Creatinine 0.83 Hemoglobin A1c % 5.7 5.5 Cholesterol 227 H 242 H LDL Cholesterol, C alc 113 H 135 H Urine Microalbumin < 5.0 PFSH Medical History Elevated LFTs GERD (gastroesophageal reflux disease) Back pain COPD (chronic obstructive pulmonary disease) Asthma Surgical History History of esophagogastroduodenoscopy (EGD) H/O colonoscopy Family History Father Alzheimer disease Social History (Updated 08/28/24 @ 08:17 by Luke Alvarez PA-C) Housing: House 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 1. Little interest or pleasure in doing things: not at all 2. Feeling down, depressed, or hopeless: not at all 3. Trouble falling or staying asleep, or sleeping too much: not at all 4. Feeling tired or having little energy: not at all 5. Poor appetite or overeating: not at all 6. Feeling bad about yourself - or that you are a failure or have let yourself or your family down: not at all 7. Trouble concentrating on things, such as reading the newspaper or watching television: not at all 8. Moving or speaking so slowly that other people could have noticed. Or the opposite - being so fidgety or restless that you have been moving around a lot more than usual: not at all 9. Thoughts that you would be better off or of hurting yourself in some way: not at all Total score: 0 Depression Screening Interpretation: Negative Depression Screening Done: Yes 79972 - PHQ-9 Billing: Yes Source: Developed by Drs. Richar Zuniga, Vicenta Lopez, Ghanshyam Karimi and colleagues, with an educational amanda from [employer]. Thrive Questionnaire Date Thrive assessed: 02/22/24 I am a: Patient What is your living situation today?: I have a steady place to live Within the past 12 months, did the food you bought not last and you didn't have the money to get more?: Often true Within the past 12 months, did you worry whether your food would run out before you got money to buy more?: Often true Do you have trouble paying for medicines?: No Do you have trouble getting transportation to medical appointments?: No Do you have trouble paying your heating and electricity bill?: No Do you have trouble taking care of your child, family member or friend?: No Do you have trouble with day-to-day activities such as bathing, preparing meals, shopping, managing finances, etc.?: No Are you currently unemployed and looking for a job?: No Are you interested in more education?: No Please select the resources that you would like help with: None Currently or been in a relationship where the following occur: I choose not to answer THRIVE Score: 2 AUDIT C Alcohol Use Questionnaire (AUDIT-C) 1. How often do you have a drink containing alcohol?: 2-3 times a week 2. How many drinks containing alcohol do you have on a typical day when you are drinking?: 1 or 2 3. How often do you have six or more drinks on one occasion?: Never Total Score: 3 JESSICA-7 AMB Questionnaire JESSICA-7 Date JESSICA - 7 assessed: 02/22/24 Feeling nervous, anxious, or on edge: 0 = Not at all Not being able to stop or control worryin = Not at all Worrying too much about different things: 0 = Not at all Trouble relaxin = Not at all Being so restless that it is hard to sit still: 0 = Not at all Becoming easily annoyed or irritable: 0 = Not at all Feeling afraid as if something awful might happen: 0 = Not at all Total JESSICA-7 score (0-4 normal; 5-9 mild; 10-14 moderate; 15-21 severe): 0 Source: Developed by Drs. Richar Zuniga, Vicenta Lopez, Ghanshyam Karimi and colleagues, with an educational amanda from [employer]. JESSICA-7 Assessment Billing JESSICA-7 Assessment Tool: JESSICA-7 Assessment 86959 Review of Systems Const Denies body aches, Denies chills, Denies excessive sweating, Denies fatigue, Denies fever(s) and Denies headache(s) Eyes Denies blurry vision ENT Denies dysphagia, Denies vertigo, Denies dizziness, Denies headache(s), Denies hearing loss and Denies tinnitus Card Denies chest pain, Denies chest pain with activity, Denies syncope, Denies irregular heart rhythm and Denies dyspnea Resp Denies chest congestion, Denies cough, Denies hemoptysis, Denies dyspnea and Denies wheezing GI Denies abdominal pain, Denies melena, Denies hematochezia, Denies coffee ground emesis, Denies dysphagia, Denies diarrhea, Denies nausea and Denies vomiting Denies difficulty urinating, Denies dysuria, Denies urinary frequency, Denies urinary hesitancy and Denies urinary urgency Musc Denies arthralgias, Denies limited range of motion, Denies muscle cramps and Denies muscle weakness Skin/Breast Denies rash and Denies skin ulcer Neuro Denies Abnormal speech present, Denies confusion, Denies vertigo, Denies dizziness, Denies syncope, Denies headache(s), Denies memory loss and Denies seizure-like activity Psych Denies anxiety, Denies confusion, Denies depression, Denies memory loss, Denies panic attacks and Denies paranoia Endo Denies excessive sweating, Denies fatigue, Denies flushing, Denies polydipsia and Denies polyuria Aller/Immun Denies wheezing Physical exam (Primary Care) Vital Signs: Last Vital Signs Pulse 81 08/28/24 07:59 BP 148/86 H 08/28/24 07:59 Pulse Ox 97 08/28/24 07:59 Oxygen Delivery Method Room Air 08/28/24 07:59 BMI result Body Mass Index 22.0 Tobacco/Smoking Status: Tobacco use Status Tobacco use date assessed 02/22/24 08/28/24 08:05 Patient Tobacco Use Status Former Tobacco user 08/28/24 08:05 Tobacco use type Cigarette 08/28/24 08:05 e-Cigarette/Vaping Use Never Used 08/28/24 08:05 PHQ-9: PHQ-9 Score PHQ-9: Total score 0 08/28/24 08:05 Depression Screening Interpretation: Negative Thrive Assessment: Date of Thrive Assessment Date Thrive assessed 02/22/24 08/28/24 08:05 Currently or been in a relationship where the following occur: I choose not to answer Const General: cooperative, comfortable, no acute distress, alert and awake; No confusion Orientation/consciousness: oriented to person, oriented to place, patient oriented x3 and No confusion HENMT Head: Yes normocephalic Ears: external ears normal and TM's normal bilaterally Face and sinus: No sinus tenderness Mouth: Normal oral and palatal mucosa present and tongue normal Teeth and gingiva: dentition normal and gingiva normal Throat: Yes posterior oropharynx normal, Yes tonsils normal and Yes uvula midline Eyes Conjunctivae: conjunctivae normal Sclerae: sclerae normal Pupils: Equal, round and reactive pupils present EOM: EOMs intact bilaterally Direct Ophthalmoscopy: No no photophobia Neck Neck: Yes no lymphadenopathy, No tender and Yes no JVD Thyroid: Thyroid normal Carotids: no bruits Chest Chest palpation & inspection: no tenderness Resp Effort & Inspection: normal respiratory effort, no audible wheezes, not labored and no stridor Auscultation: no crackles, no rales, no rhonchi and no wheezes Cardio Jugular venous distension: no JVD Rate: regular rate, not bradycardic and not tachycardic Rhythm: regular rhythm Bruits: no carotid bruits Peripheral pulses: Peripheral pulses 2+ throughout GI Inspection: Yes normal to inspection, No abdominal wall ecchymosis and No visible herniation Palpation (GI): Soft to palpation, nontender, no guarding, not rigid and No hepatosplenomegaly present Auscultation: normoactive bowel sounds General: Yes no CVA tenderness Back/Spine/Pelvis Back: no CVA tenderness and No back tenderness Cervical Spine: cervical ROM normal Thoracic/Lumbar Spine: thoracic and lumbar spine normal to inspection, straight leg raise negative bilaterally, No thoraco-lumbar ROM limited and No lumbar spinal tenderness Skin Lesions: no lesions Rashes: no rashes Wounds: no wounds Neuro General: oriented to person, oriented to place, patient oriented x3, CN's II-XI intact bilaterally and No confusion Cranial nerves: Yes Equal, round and reactive pupils present and Yes Normal accommodation reflex present Cognition (Neuro): normal cognition Speech: No Abnormal speech present Gait exam (Neuro): Normal gait present Motor exam (neuro): 5/5 motor strength present throughout Extrem Right upper extremity: full ROM; no cyanosis Left upper extremity: full ROM; no cyanosis Right lower extremity: no edema Left lower extremity: no edema Psych Appearance: grossly normal Mental Status: mental status grossly normal Affect: normal affect Attitude: cooperative Thought process: Normal thought process present Coding Level of Care Code Est Pt Prev Care 40-64y(43240) Diagnoses Annual physical exam Z00.00 Herpes simplex B00.9 Impaired glucose metabolism R73.09 Primary hypertension I10 Hypertension type: primary hypertension Tubular adenoma of colon D12.6 Mild intermittent asthma without complication J45.20 Asthma severity: mild Asthma persistence: intermittent Asthma complication type: uncomplicated Borderline high cholesterol E78.9 Additional Codes JESSICA-7 Assessment Billing - JESSICA-7 Assessment Tool: JESSICA-7 Assessment 80120 ([id number]) Assessment & Plan Assessment & Plan (1) Annual physical exam: Code(s): Z00.00 - Encounter for general adult medical examination without abnormal findings Category: Medical Plan: As per HPI (2) Herpes simplex: Code(s): B00.9 - Herpesviral infection, unspecified Category: Medical Plan: Often get cold sore breakouts in the winter. Will use Valtrex (3) Impaired glucose metabolism: Code(s): R73.09 - Other abnormal glucose Category: Medical Plan: When he has breakouts. Most recent fasting blood sugar slightly elevated, A1c within normal range. He will continue working on lifestyle and dietary modifications to reduce his fasting blood sugar. (4) HTN (hypertension): Code(s): I10 - Essential (primary) hypertension Category: Medical Qualifiers: Hypertension type: primary hypertension Qualified Code(s): I10 - Essential (primary) hypertension Plan: Patient's blood pressure slightly elevated today in office. He continues with lisinopril 5 mg. He reports blood pressures at home have been stable. Will continue his current dose of lisinopril with goal blood pressure to remain below 140/90 (5) Tubular adenoma of colon: Code(s): D12.6 - Benign neoplasm of colon, unspecified Category: Medical Plan: Patient is in need of a repeat colonoscopy in 2024. Did have a history of a flat tubular adenoma polyp years back. Followed by Dr. Talbot (6) Asthma: Code(s): J45.909 - Unspecified asthma, uncomplicated Category: Medical Qualifiers: Asthma severity: mild Asthma persistence: intermittent Asthma complication type: uncomplicated Qualified Code(s): J45.20 - Mild intermittent asthma, uncomplicated Plan: Patient reports his asthma is fairly well controlled. Has been much better since he has stopped smoking in 2020. Does use an albuterol inhaler and allergy medication which has helped him significantly as well. (7) Borderline high cholesterol: Code(s): E78.9 - Disorder of lipoprotein metabolism, unspecified Category: Medical Plan: Patient's most recent fasting lipid panel showing elevated total cholesterol and LDL. He admits to some dietary indiscretion. He does report being more physically active as of late. He will try to work on lifestyle and dietary modifications to reduce his cholesterol. If LDL above 160 and total cholesterol above 240 will consider low-dose statin therapy. Orders: Orders Lipid Panel 6 Months E78.9 - Disorder of lipoprotein metabolism, unspecified Prostate Specific Antigen Scr 6 Months I10 - Essential (primary) hypertension, Z12.5 - Encounter for screening for malignant neoplasm of prostate Hemoglobin A1c 6 Months R73.09 - Other abnormal glucose Comprehensive [place]. Panel Fast 6 Months R73.09 - Other abnormal glucose Microalbumin, Random (w Creat) 6 Months I10 - Essential (primary) hypertension Complete Blood Count no Diff 6 Months I10 - Essential (primary) hypertension Medications: New valacyclovir (Valtrex) 1,000 mg PO BID 7 days PRN 14 tabs 0RF mouth irritation B00.9 - Herpesviral infection, unspecified Refilled albuterol sulfate 90 mcg/actuation 2 puffs inhalation Q4-6H 90 days PRN 3 inhalers 1RF shortness of breath or wheezing J42 - Unspecified chronic bronchitis montelukast 10 mg PO DAILY 90 days 90 tabs 1RF J42 - Unspecified chronic bronchitis Patient Instructions: Goal: Blood pressure to remain below 140/90 Barriers: Adherence to physical activity and healthy eating habits
== END 2024-08-28 08:32 | disposition home or self-care (01) ==
PROVIDERS: PCP Physician Assistant; Visit Provider Physician Assistant
DX: Z00.00 Encounter for general adult medical examination without abnormal findings (principal); B00.9 Herpesviral infection, unspecified; R73.09 Other abnormal glucose; I10 Essential (primary) hypertension; D12.6 Benign neoplasm of colon, unspecified; J45.20 Mild intermittent asthma, uncomplicated; E78.9 Disorder of lipoprotein metabolism, unspecified

== ENCOUNTER → 2024-08-28 07:46 | Outpatient (BNVA) | payer OTHER, SELFPAY | PROVIDERS: PCP Physician Assistant; Visit Provider Physician Assistant | DX: Z00.00 Encounter for general adult medical examination without abnormal findings (principal); B00.9 Herpesviral infection, unspecified; R73.09 Other abnormal glucose; I10 Essential (primary) hypertension; J45.20 Mild intermittent asthma, uncomplicated; E78.9 Disorder of lipoprotein metabolism, unspecified; Z79.899 Other long term (current) drug therapy | CPT/HCPCS: 96127 ==

== ENCOUNTER 2025-03-05 13:26 | Outpatient (REF) | payer OTHER, SELFPAY ==
[2025-03-05 14:06] LABS: Hematocrit 45.7 % (42.0-52.0); Hemoglobin 15.3 g/dl (14.0-18.0); Mean Corpuscular HGB Conc 33.5 g/dl (31.0-36.0); Mean Corpuscular Hemoglobin 31.7 pg (27.0-33.0); Mean Corpuscular Volume 94.6 fL (80.0-98.0); Mean Platelet Volume 10.2 fL (9.4-12.4); Platelet Count 301 X10*3/uL (160-400); Red Blood Count 4.83 X10*6/uL (4.60-5.80); Red Cell Distribution Width 12.7 % (11.0-16.0); White Blood Count 5.4 X10*3/uL (4.8-10.8)
[2025-03-05 14:18] LABS: Estimated Average Glucose 105 mg/dL; Hemoglobin A1C 134.4761 umol/L; Hemoglobin A1c % 5.3 % (<6.0); Total Hemoglobin (HGBA1C) 3932.4947 umol/L
[2025-03-05 14:56] LABS: Creatinine Urine 132.77 mg/dL; Microalbum/Creatinine Ratio Ur 5.2 ug/mg cr (<30)
[2025-03-05 15:02] LABS: Alanine Aminotransferase 19 U/L (0-40); Albumin Level 4.6 g/dL (3.5-5.0); Alkaline Phosphatase 83 U/L (39-117); Anion Gap 13 (12-20); Aspartate Amino Transferase 26 U/L (5-37); Bilirubin Total 1.3 mg/dL (0.0-1.0); Blood Urea Nitrogen 14 mg/dL (9-16); Calcium 9.9 mg/dL (8.4-10.2); Carbon Dioxide 31 mmol/L (22-29); Chloride 99 mmol/L (96-108); Cholesterol 272 mg/dL (<200); Estimated Glomerular Filt Rate > 60; Glucose Fasting 113 mg/dL (60-99); HDL Cholesterol 133 mg/dL (>40); LDL Cholesterol Calculated 127 mg/dL (<100); Potassium 4.2 mmol/L (3.3-5.1); Prostate Specific Antigen Scr 0.39 ng/mL (<0.05-4.0); Sodium 139 mmol/L (135-145); Total Protein 7.9 g/dL (6.5-8.0); Triglycerides 62 mg/dL (<150)
== END 2025-03-05 13:27 | disposition home or self-care (01) ==
LOC: HO.LAB 13:26
PROVIDERS: PCP Physician Assistant; Visit Provider Physician Assistant
DX: Z12.5 Encounter for screening for malignant neoplasm of prostate (principal); I10 Essential (primary) hypertension; R73.09 Other abnormal glucose; E78.9 Disorder of lipoprotein metabolism, unspecified
CPT/HCPCS: 36415; 80053; 80061; 82043; 82570; 83036; 84153; 85027

== ENCOUNTER 2025-04-22 08:39 | Outpatient (AMB) | payer OTHER, SELFPAY ==
--- NOTE | 2025-04-22 08:49 | MHC.PC.OV ---
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 Required: No Accompanied by: Self / Same As Patient Allergies No Known Allergies Allergy (Verified 04/22/25 08:55) Medication List - Last Reconciled 04/22/25 by Luke Alvarez PA-C albuterol sulfate 2.5 mg (3 mL) inhalation Q6H PRN 30 days albuterol sulfate 90 mcg/actuation 2 puffs inhalation Q4-6H PRN 90 days lisinopril 5 mg PO DAILY 90 days montelukast 10 mg PO DAILY 90 days multivitamin 1 tab PO DAILY omeprazole 40 mg PO DAILY valacyclovir (Valtrex) 1,000 mg PO BID PRN 7 days Tobacco use date assessed: 04/22/25 Dental Screening Dental Screen Date: 04/22/25 Did you have a dental visit in the last 12 months?: Yes Did you have a dental problem in the last 6 months where you did not have access to dental care?: No Was dental information given to patient?: Patient has dentist HPI f/u HTN/ HLD HPI Details Patient is a 60-year-old male here today for an follow-up visit.? Patient has a past medical history significant for COPD, former smoker, GERD.. Concern--> has had a week of right knee pain and swelling that has been getting better over the last few days. Has been using NSAID and icing the knee. He does report over the last few months moving from his home to a different home. He is willing to get an x-ray of the knee to evaluate for osteoarthritis. Hypertension: Noted slightly elevated blood pressure today in office. Continues on lisinopril 5 mg, had a few cups of coffee this morning. Does not monitor his blood pressure at home is willing to start doing so. Will consider increasing his lisinopril to 10 mg if blood pressures remain above 140 systolic . He denies any headaches, chest discomforts or shortness of breath. .. Borderline high cholesterol: Most recent lipids showing high cholesterol -272. Patient admits to some dietary indiscretion. Patient will work better eating habits to reduce his cholesterol .. COPD: Quit smoking in 2020, Report his breathing is stable. Continues to abstain from cigarette smoking. Has been compliant with his maintenance inhaler and p.r.n. use of his albuterol inhaler. .. Former smoker:? Quit smoking in 2020, Did smoke for little over 20 years, unclear if he has smoked a pack a day.? He is likely a candidate for lung cancer screening and is considering being referred. Laboratory Tests 08/25/24 03/05/25 09:20 13:35 Fasting Glucose 106 H 113 H Cholesterol 242 H 272 H LDL Cholesterol, C alc 135 H 127 H PSA Screen 0.39 PFSH Medical History Elevated LFTs GERD (gastroesophageal reflux disease) Back pain COPD (chronic obstructive pulmonary disease) Asthma Surgical History History of esophagogastroduodenoscopy (EGD) H/O colonoscopy Family History Father Alzheimer disease Social History Housing: House Are you a primary ambulatory care coordinator to a significant other at home: Yes Do you presently have visiting nurse or other home services: No Alcohol intake: current Alcohol intake frequency: 0-2 drinks per day Alcohol type: beer Patient Tobacco Use Status: Former Tobacco user Tobacco use type: Cigarette e-Cigarette/Vaping Use: Never Used Second Hand Smoke Exposure: No service: No Current occupational status: employed Current occupation: [employer] Current occupational exposures/hazards: No Cognitive needs: No Hearing needs: No Vision needs: Yes Questionnaire PHQ-9 Over the last 2 weeks, how often have you been bothered by any of the following problems? 1. Little interest or pleasure in doing things: not at all 2. Feeling down, depressed, or hopeless: not at all 3. Trouble falling or staying asleep, or sleeping too much: not at all 4. Feeling tired or having little energy: not at all 5. Poor appetite or overeating: not at all 6. Feeling bad about yourself - or that you are a failure or have let yourself or your family down: not at all 7. Trouble concentrating on things, such as reading the newspaper or watching television: not at all 8. Moving or speaking so slowly that other people could have noticed. Or the opposite - being so fidgety or restless that you have been moving around a lot more than usual: not at all 9. Thoughts that you would be better off or of hurting yourself in some way: not at all Total score: 0 Depression Screening Interpretation: Negative Depression Screening Done: Yes 62458 - PHQ-9 Billing: Yes Source: Developed by Drs. Richar Zuniga, Vicenta Lopez, Ghanshyam Karimi and colleagues, with an educational amanda from [employer]. Thrive Questionnaire Date Thrive assessed: 04/22/25 I am a: Patient What is your living situation today?: I have a steady place to live Within the past 12 months, did the food you bought not last and you didn't have the money to get more?: Never true Within the past 12 months, did you worry whether your food would run out before you got money to buy more?: Never true Do you have trouble paying for medicines?: No Do you have trouble getting transportation to medical appointments?: No Do you have trouble paying your heating and electricity bill?: No Do you have trouble taking care of your child, family member or friend?: No Do you have trouble with day-to-day activities such as bathing, preparing meals, shopping, managing finances, etc.?: No Are you currently unemployed and looking for a job?: No Are you interested in more education?: No Please select the resources that you would like help with: None Currently or been in a relationship where the following occur: No concerns reported THRIVE Score: 0 AUDIT C Alcohol Use Questionnaire (AUDIT-C) 1. How often do you have a drink containing alcohol?: 2-3 times a week 2. How many drinks containing alcohol do you have on a typical day when you are drinking?: 1 or 2 3. How often do you have six or more drinks on one occasion?: Monthly Total Score: 5 JESSICA-7 AMB Questionnaire JESSICA-7 Date JESSICA - 7 assessed: 04/22/25 Feeling nervous, anxious, or on edge: 0 = Not at all Not being able to stop or control worryin = Not at all Worrying too much about different things: 0 = Not at all Trouble relaxin = Not at all Being so restless that it is hard to sit still: 0 = Not at all Becoming easily annoyed or irritable: 0 = Not at all Feeling afraid as if something awful might happen: 0 = Not at all Total JESSICA-7 score (0-4 normal; 5-9 mild; 10-14 moderate; 15-21 severe): 0 Source: Developed by Drs. Richar Zuniga, Vicenta Lopez, Ghanshyam Karimi and colleagues, with an educational amanda from [employer]. JESSICA-7 Assessment Billing JESSICA-7 Assessment Tool: JESSICA-7 Assessment 64350 Review of Systems Const Denies headache(s) Eyes Denies loss of vision ENT Denies vertigo, Denies dizziness, Denies headache(s) and Denies sore throat Card Denies chest pain, Denies leg edema and Denies lightheadedness Resp Denies cough, Denies hemoptysis and Denies wheezing GI Denies abdominal pain, Denies melena, Denies constipation, Denies diarrhea and Denies vomiting Denies dysuria, Denies urinary frequency and Denies urinary urgency Musc Denies arthralgias, Denies joint swelling, Denies numbness and Denies tingling Neuro Denies Abnormal speech present, Denies behavioral changes, Denies vertigo, Denies dizziness, Denies headache(s), Denies loss of vision, Denies memory loss, Denies numbness and Denies tingling Psych Denies anxiety, Denies behavioral changes, Denies depression, Denies memory loss and Denies panic attacks Bora/Lymph Denies easy bleeding and Denies easy bruising Aller/Immun Denies wheezing Physical exam (Primary Care) Vital Signs: Last Vital Signs Temp 97.1 F 04/22/25 08:50 Pulse 74 04/22/25 08:50 BP 142/68 H 04/22/25 09:07 Pulse Ox 94 04/22/25 08:50 Oxygen Delivery Method Room Air 04/22/25 08:50 Care Plan Goal for BP management: Will start monitoring blood pressure at home with goal blood pressure to be below 140/90 Next steps: At next visit if pressures at home above 140/90 consistently will consider increasing lisinopril dose. BMI result Body Mass Index 22.5 Tobacco/Smoking Status: Tobacco use Status Tobacco use date assessed 04/22/25 04/22/25 08:54 Patient Tobacco Use Status Former Tobacco user 04/22/25 08:53 Tobacco use type Cigarette 04/22/25 08:53 e-Cigarette/Vaping Use Never Used 04/22/25 08:53 PHQ-9: PHQ-9 Score PHQ-9: Total score 0 04/22/25 08:57 Depression Screening Interpretation: Negative Thrive Assessment: Date of Thrive Assessment Date Thrive assessed 04/22/25 04/22/25 08:53 Currently or been in a relationship where the following occur: No concerns reported Const General: healthy appearing, no acute distress, alert and awake Nutritional Appearance: well nourished Orientation/consciousness: oriented to person, oriented to place and oriented to time HENMT Ears: TM's normal bilaterally General nose exam: Normal nasal mucous membranes and turbinates present Eyes Conjunctivae: conjunctivae normal Sclerae: sclerae normal Pupils: Equal, round and reactive pupils present Neck Neck: Yes no lymphadenopathy and Yes no JVD Thyroid: Thyroid normal Carotids: no bruits Resp Effort & Inspection: normal respiratory effort and not tachypneic Auscultation: no crackles, no rales, no rhonchi and no wheezes Cardio Rate: regular rate Rhythm: regular rhythm Heart sounds: no murmurs and normal S1 and S2 GI Palpation (GI): Soft to palpation, nontender, no hepatomegaly and no splenomegaly Auscultation: normal bowel sounds Skin General skin exam: no rashes or lesions noted and dry skin Neuro General: oriented to person, oriented to place and oriented to time Cranial nerves: Yes Equal, round and reactive pupils present Speech: No Abnormal speech present Gait exam (Neuro): Normal gait present Motor exam (neuro): no tremor noted Extrem Right upper extremity: full ROM Left upper extremity: full ROM Right lower extremity: full ROM; no edema Left lower extremity: full ROM; no edema Psych Mental Status: mental status grossly normal Speech and movement: Normal speech and movement present Affect: normal affect Attitude: cooperative Thought process: Normal thought process present Coding Level of Care Code Est Pt Level 4 (85636) Diagnoses Impaired glucose metabolism R73.09 Primary hypertension I10 Hypertension type: primary hypertension Tubular adenoma of colon D12.6 Mild intermittent asthma without complication J45.20 Asthma complication type: uncomplicated Asthma persistence: intermittent Asthma severity: mild Primary osteoarthritis of right knee M17.11 Osteoarthritis type: primary Chronic bronchitis, unspecified chronic bronchitis type J42 COPD type: chronic bronchitis Chronic bronchitis type: unspecified Low libido R68.82 Mixed hyperlipidemia E78.2 Hyperlipidemia type: mixed hyperlipidemia Additional Codes JESSICA-7 Assessment Billing - JESSICA-7 Assessment Tool: JESSICA-7 Assessment 38152 ([id number]) PHQ-9 - 19719 - PHQ-9 Billing: Yes ([id number]) Assessment & Plan Assessment & Plan (1) Impaired glucose metabolism: Code(s): R73.09 - Other abnormal glucose Category: Medical Plan: When he has breakouts. Most recent fasting blood sugar slightly elevated, A1c within normal range. He will continue working on lifestyle and dietary modifications to reduce his fasting blood sugar. (2) HTN (hypertension): Code(s): I10 - Essential (primary) hypertension Category: Medical Qualifiers: Hypertension type: primary hypertension Qualified Code(s): I10 - Essential (primary) hypertension Plan: Patient's blood pressure slightly elevated today in office. He continues with lisinopril 5 mg. He does not monitor his blood pressure at home. He feels he may have white coat hypertension though will start monitoring blood pressure at home. Will continue his current dose of lisinopril with goal blood pressure to remain below 140/90 (3) Tubular adenoma of colon: Code(s): D12.6 - Benign neoplasm of colon, unspecified Category: Medical Plan: Patient is in need of a repeat colonoscopy in 2024. Did have a history of a flat tubular adenoma polyp years back. Followed by Dr. Talbot (4) Asthma: Code(s): J45.909 - Unspecified asthma, uncomplicated Category: Medical Qualifiers: Asthma complication type: uncomplicated Asthma persistence: intermittent Asthma severity: mild Qualified Code(s): J45.20 - Mild intermittent asthma, uncomplicated Plan: Patient reports his asthma is fairly well controlled. Has been much better since he has stopped smoking in 2020. Does use an albuterol inhaler and allergy medication which has helped him significantly as well. (5) Osteoarthritis of right knee: Code(s): M17.11 - Unilateral primary osteoarthritis, right knee Category: Medical Qualifiers: Osteoarthritis type: primary Qualified Code(s): M17.11 - Unilateral primary osteoarthritis, right knee Plan: Recently had an swollen right knee which has been getting better with anti-inflammatory and icing. Will supply patient with 5 tablets of prednisone for the next 5 days. We will get an x-ray to evaluate for arthritis. (6) COPD (chronic obstructive pulmonary disease): Code(s): J44.9 - Chronic obstructive pulmonary disease, unspecified Category: Medical Qualifiers: COPD type: chronic bronchitis Chronic bronchitis type: unspecified Qualified Code(s): J42 - Unspecified chronic bronchitis Plan: Patient reports his COPD has not been bothersome. Continues with the use of an albuterol inhaler as needed otherwise has not had any exacerbations. He has been years without smoking (7) Low libido: Code(s): R68.82 - Decreased libido Category: Medical Plan: He would like his testosterone checked (8) Hyperlipidemia: Code(s): E78.5 - Hyperlipidemia, unspecified Category: Medical Qualifiers: Hyperlipidemia type: mixed hyperlipidemia Qualified Code(s): E78.2 - Mixed hyperlipidemia Plan: Patient most recent fasting lipid panel showing very elevated total cholesterol and LDL. He declines starting cholesterol medication at this time. He will work on dietary modifications and if cholesterol remains elevated will start low-dose statin therapy. Goal LDL is to be below 130 Orders: Orders Comprehensive [place]. Panel Fast 04/22/25 I10 - Essential (primary) hypertension Testosterone, Free/Total 04/22/25 R68.82 - Decreased libido XR knee RT 3V 04/22/25 M17.11 - Unilateral primary osteoarthritis, right knee Complete Blood Count no Diff 04/22/25 I10 - Essential (primary) hypertension Lipid Panel 04/22/25 E78.9 - Disorder of lipoprotein metabolism, unspecified Hemoglobin A1c 04/22/25 R73.09 - Other abnormal glucose Medications: New prednisone 20 mg PO DAILY 5 tabs 0RF 5 days M17.11 - Unilateral primary osteoarthritis, right knee Refilled valacyclovir (Valtrex) 1,000 mg PO BID PRN 14 tabs 0RF mouth irritation 7 days B00.9 - Herpesviral infection, unspecified albuterol sulfate 2.5 mg (3 mL) inhalation Q6H PRN 180 mL 2RF shortness of breath or wheezing 30 days J42 - Unspecified chronic bronchitis albuterol sulfate 90 mcg/actuation 2 puffs inhalation Q4-6H PRN 3 inhalers 1RF shortness of breath or wheezing 90 days J42 - Unspecified chronic bronchitis montelukast 10 mg PO DAILY 90 tabs 1RF 90 days J42 - Unspecified chronic bronchitis
[2025-04-22 08:50] VITALS: BP 150/72; PULSE 74; TEMP 36.2; O2SAT 94; BMI 22.5
--- OUTSIDE RECORDS SUMMARY | 2025-04-22 09:05 | XMS_ITS | Patient Health Record ---
Author Organization [facility] Address [address] [place] [id number] Care Team Providers Care Yoghurt Maker Name Role Phone Luke Alvarez Primary Care Provider Unavailab Urban Burrell Unavailable [phone] Allergies Allergen (clinical drug ingredient) Drug/Non Drug Allergy documented on EMR Reaction Allergy Type Onset Date Status cats and dogs (uncoded) Unknown Allergy Active Reason For Referral No Information Medications Medication SIG (Take, Route, Frequency, Duration) Notes Start Date End Date Status Advair Diskus 250-50 MCG/ACT 1 puff Inhalation Twice a day Active Motrin one tablet as needed as needed Active Albuterol Sulfate HFA 108 (90 Base) MCG/ACT Inhalation for 17 Activ e Montelukast Sodium 10 MG Oral for 30 Active Multivitamin - as directed Orally o nce a day Active Omeprazole Magnesium 20 MG 1 tablet Orally Once a day/ as needed Active Singulair 10MG Not-T aking Immunizations Vaccine Route Administration Date Status Comme nts Influenza Unknown 08/07/2019 Administered Influenza Unknown 07/08/2021 Administered Social History Tobacco Use: Social History Observation Description Date Details (start date - stop date) Former Smoker NA - NA Tobacco Use/Smoking Question Answer Notes Patient is a former smoker How long has it been since you last smoked? 1-3 months Alcohol Screen Question Answer Notes Did you have a drink contain ing alcohol in the past year? Yes How often did you have a dri nk containing alcohol in the past year? 2 to 3 times a week (3 points) How many drinks did you have on a typical day when you were drinking in the past year? 3 or 4 drinks (1 point) How often did you have 6 or more drinks on one occasion in the past year? Never (0 point) Points 4 Interpretation Positive Section Notes: Smoker; 2-3 beers QOD Smoker-not daily; 2-3 beers QOD Smoker-but quit on 11/07/2019; 2-3 beers QOD Smoker-but quit on 11/07/2019; 2-3 beers QOD Problems Problem Type SNOMED Code ICD Code Onset Dates Problem Status W/U Status Risk Notes Problem [id number] Encounter for screening for malignant neoplasm of colon (Z12.11) Active confirmed Problem 658251506 History of adenomatous polyp of colon (Z86.010) Active confirmed Problem History of polyp of colon (situation) (006213502) Personal history of colonic polyps (Z86.010) Active confirmed Problem 737028411 Gastroesophageal reflux disease with esophagitis (K21.0) Active confirmed Problem [id number] Preprocedural examination (Z01.818) Active confirmed Problem Gastroesophageal reflux disease (296386994) GERD (gastroesophageal reflux disease) (K21.9) Active confirmed Problem Diverticulosis of colon (815275966) Diverticulosis of colon (K57.30) Active confirmed Plan Of Treatment Future Test Test Name Order Date UPPER GI ENDOSCOPY 08/07/2013 COLONOSCOPY 08/07/2013 COLONOSCOPY 07/04/2018 COLONOSCOPY 12/18/2019 COLONOSCOPY 06/11/2022 Insurance Providers Payer Name Payer Address Payer Phone Subscriber Number Group Number Insured Name Patient Relationship to Insured Coverage Start Date Coverage End Date [facility] [address] [facility] [place] [phone] [id number] URBAN LIU Self - patient is the insured Medical (General) History Medical History History ICD Code Asthma/COPD Denies MA,DM,CVA,renal disease Chronic back pain-s/p epidurals GERD--EGD in 2012--small HH and mild ref lux esophagitis--no Roberts's Colonoscopy in 2012--small tubular adeno ma and hyperplastic polyp Colonoscopy 10/2018 with a f lat tubular adenoma in the very proximal ascending colon that was at least partially removed Colonoscopy 02/2020 with resi dual adenoma removed from proximal ascending colon Surgical History Surgery Date(Month/Year)
[2025-04-22 09:07] VITALS: BP 142/68
== END 2025-04-22 09:13 | disposition home or self-care (01) ==
LOC: HO.HMCH 08:40
PROVIDERS: PCP Physician Assistant; Visit Provider Physician Assistant
DX: R73.09 Other abnormal glucose (principal); J42 Unspecified chronic bronchitis; I10 Essential (primary) hypertension; D12.6 Benign neoplasm of colon, unspecified; J45.20 Mild intermittent asthma, uncomplicated; M17.11 Unilateral primary osteoarthritis, right knee; R68.82 Decreased libido; E78.2 Mixed hyperlipidemia

== ENCOUNTER → 2025-04-22 08:39 | Outpatient (BNVA) | payer OTHER, SELFPAY | PROVIDERS: PCP Physician Assistant; Visit Provider Physician Assistant | DX: I10 Essential (primary) hypertension (principal); K21.9 Gastro-esophageal reflux disease without esophagitis; R73.09 Other abnormal glucose; D12.6 Benign neoplasm of colon, unspecified; J45.20 Mild intermittent asthma, uncomplicated; M17.11 Unilateral primary osteoarthritis, right knee; J42 Unspecified chronic bronchitis; R68.82 Decreased libido; E78.2 Mixed hyperlipidemia; B00.9 Herpesviral infection, unspecified; Z87.891 Personal history of nicotine dependence | CPT/HCPCS: 96127 ==

== ENCOUNTER 2025-07-17 09:07 | Outpatient (REF) | payer OTHER, SELFPAY ==
--- NOTE | ~2025-07-17 | XR_ITS ---
EXAMINATION: XR LUMBOSACRAL SPINE CLINICAL INFORMATION: M54.50 - Low back pain, unspecified COMPARISON: None available. TECHNIQUE: AP and lateral views FINDINGS: Endplate sclerosis at multiple levels of the axial skeleton. Decreased intervertebral disc height at L5-S1. Small marginal osteophyte formation at multiple levels with syndesmophyte formation at L3-4. Facet joint hypertrophy at L5-S1. Questionable grade 1 retrolisthesis L5-S1. Degenerative changes in the coxofemoral joints. XR/XR lumbar spine 2-3V IMPRESSION: Multilevel spondylosis pronounced at L5-S1 with questionable grade 1 retrolisthesis. Electronically signed by: Jose Arroyo MD 07/17/2025 10:09 AM EDT
== END 2025-07-17 09:08 | disposition home or self-care (01) ==
LOC: HO.HMGCX 09:07
PROVIDERS: PCP Physician Assistant; Visit Provider Internal Medicine
DX: M54.50 Low back pain, unspecified (principal); M79.605 Pain in left leg
CPT/HCPCS: 72100

== ENCOUNTER 2025-07-17 09:07 | Outpatient (AMB) | payer OTHER, SELFPAY ==
[2025-07-17 09:37] VITALS: BP 128/64; PULSE 73; TEMP 36.7; O2SAT 93; BMI 22.7
--- NOTE | 2025-07-17 09:37 | AM.OFFWIN_ITS ---
Intake Vital Signs 07/17/25 09:37 Height 5 ft 10 in Weight 158 lb BMI 22.7 BP 128/64 Blood Pressure Location Lt brachial Position Sitting Pulse 73 Pulse Source Pulse Oximeter Temp 98.0 F Temp Source Oral Pulse Oximetry (%) 93 Oxygen Delivery Method Room Air Intake Visit Reasons: EP Pain from lt buttock to toes Intake Note: pt presents with radiating pain from left buttock down to toes Patient Tobacco Use Status: Former Tobacco user Allergies No Known Allergies Allergy (Verified 07/17/25 09:39) Medication List - Last Reconciled 07/17/25 by Nallely Mcleod MD albuterol sulfate 2.5 mg (3 mL) inhalation Q6H PRN 30 days albuterol sulfate 90 mcg/actuation 2 puffs inhalation Q4-6H PRN 90 days lisinopril 5 mg PO DAILY 90 days montelukast 10 mg PO DAILY 90 days multivitamin 1 tab PO DAILY omeprazole 40 mg PO DAILY valacyclovir (Valtrex) 1,000 mg PO BID PRN 7 days Do you need a note to return to daycare/school/sports/work: Yes HPI EP Pain from lt buttock to toes HPI Details History of Present Illness The patient is a 60 year old male presenting with sciatica with associated left leg pain and numbness. Sciatica: - Patient reports experiencing pain for a couple of weeks, specifically in the back of the buttock on the left side. - The pain radiates from the buttock dawson n the left leg to the toes, with areas of numbness and tingling. - Symptoms include difficulty sleeping a nd discomfort, particularly when sitting. - Patient describes the pain as becoming severe past the knee and more intense in particular areas. - No history of back injuries, but carmencita l work-related back soreness noted. - Previous history of li splints, with past experiences resolving without intervention. - The patient takes ibuprofen every four hours with some relief but is cautious to avoid excessive dosing. 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 - The patient notes having significant s ick time available at work and considers taking a few days off for recovery. Problem List - Sciatica left-sided Patient Instructions - Take prescribed medication with food t o relieve nerve pressure. - Avoid excessive physical activities, p articularly bending, twisting, and lifting. - Consider taking the rest of the week o ff work for rest. - Continue to monitor symptoms and follo w up if necessary. Review of Systems - General: No fever no chills - Neurological: No headaches no dizziness - Ear nose throat: No sore throat no hearing difficulty no ear pain - Cardiovascular: No syncope, no chest pain, no palpitations - Gastrointestinal: No nausea vomiting or diarrhea Physical Exam General: No acute distress HEENT: No acute findings Neck: Supple Respiratory system: Able to talk in full sentences, no audible wheeze Gastrointestinal: No pain Extremities: No new findings MOLD BREAKER: Alert awake oriented x3 motor intact, Pain from the left buttock down to the toes, numbness and tingling sensation left leg, straight leg mildly positive Skin: Normal turgor PFSH Medical History Elevated LFTs GERD (gastroesophageal reflux disease) Back pain COPD (chronic obstructive pulmonary disease) Asthma Surgical History History of esophagogastroduodenoscopy (EGD) H/O colonoscopy Family History Father Alzheimer disease Social History Housing: House Are you a primary critical care physician to a significant other at home: Yes Do you presently have visiting nurse or other home services: No Alcohol intake: current Alcohol intake frequency: 0-2 drinks per day Alcohol type: beer Patient Tobacco Use Status: Former Tobacco user Tobacco use type: Cigarette e-Cigarette/Vaping Use: Never Used Second Hand Smoke Exposure: No service: No Current occupational status: employed Current occupation: [employer] Current occupational exposures/hazards: No Cognitive needs: No Hearing needs: No Vision needs: Yes Physical Exam Vital Signs: Last Vital Signs Temp 98.0 F 07/17/25 09:37 Pulse 73 07/17/25 09:37 BP 128/64 07/17/25 09:37 Pulse Ox 93 07/17/25 09:37 Oxygen Delivery Method Room Air 07/17/25 09:37 BMI result Body Mass Index 22.7 Assessment & Plan Assessment & Plan (1) Lumbar pain with radiation down left leg: Code(s): M54.50 - Low back pain, unspecified; M79.605 - Pain in left leg Plan History of Present Illness The patient is a 60 year old male presenting with sciatica with associated left leg pain and numbness. Sciatica: - Patient reports experiencing pain for a couple of weeks, specifically in the back of the buttock on the left side. - The pain radiates from the buttock down the left leg to the toes, with areas of numbness and tingling. - Symptoms include difficulty sleeping and discomfort, particularly when sitting. - Patient describes the pain as becoming severe past the knee and more intense in particular areas. - No history of back injuries, but normal work-related back soreness noted. - Previous history of li splints, with past experiences resolving without intervention. - The patient takes ibuprofen every four hours with some relief but is cautious to avoid excessive dosing. 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 - The patient notes having significant sick time available at work and considers taking a few days off for recovery. Problem List - Sciatica left-sided Patient Instructions - Take prescribed medication with food to relieve nerve pressure. - Avoid excessive physical activities, particularly bending, twisting, and lifting. - Consider taking the rest of the week off work for rest. - Continue to monitor symptoms and follow up if necessary. X-ray mood came back at 15:00 Which showed, Multilevel spondylosis pronounced at L5-S1 with questionable grade 1 retrolisthesis. Patient notified of report and also given instruction to follow up with primary care Orders: Orders XR lumbar spine 2-3V Today M54.50 - Low back pain, unspecified, M79.605 - Pain in left leg Coding Level of Care Code Est Pt Level 4 (05513) Diagnoses Lumbar pain with radiation down left leg M54.50; M79.605 Time Spent (min) 30 Comment Follow-up on x-ray report and further guidance provided to patient
--- OUTSIDE RECORDS SUMMARY | 2025-07-17 10:46 | XMS_ITS | Patient Health Record ---
Author Organization [facility] Address [address] [place] [id number] Care Team Providers Care Folder Tier Name Role Phone Luke Alvarez Primary Care Provider Unavailab Urban Burrell Unavailable [phone] Allergies Allergen (clinical drug ingredient) Drug/Non Drug [...] Problem Status W/U Status Risk Notes Problem 902771287 Encounter for screening for malignant neoplasm of colon (Z12.11) Active confirmed Problem 106777437 History of adenomatous polyp of colon (Z86.010) Active confirmed Problem History of polyp of colon (situation) (924093568) Personal history of colonic polyps (Z86.010) Active confirmed Problem 921661195 Gastroesophageal reflux disease with esophagitis (K21.0) Active confirmed Problem 724321998975774 Preprocedural examination (Z01.818) Active confirmed Problem Gastroesophageal reflux disease (462278425) GERD (gastroesophageal reflux disease) (K21.9) Active confirmed Problem Diverticulosis of colon (979198711) Diverticulosis of colon (K57.30) Active confirmed Plan Of Treatment Future Test Test Name Order Date UPPER GI ENDOSCOPY 08/07/2013 COLONOSCOPY 08/07/2013 COLONOSCOPY 07/04/2018 COLONOSCOPY 12/18/2019 COLONOSCOPY 06/11/2022 Insurance Providers Payer Name Payer Address Payer Phone Subscriber Number Group Number Insured Name Patient Relationship to Insured Coverage Start Date Coverage End Date [facility] [address] [facility] [place] [phone] [id number] URBAN LIU Self - patient is the insured Medical (General) History Medical History History ICD Code Asthma/COPD Denies [place],DM,CVA,renal disease Chronic back pain-s/p epidurals GERD--EGD in [...]
== END 2025-07-17 10:14 | disposition home or self-care (01) ==
PROVIDERS: PCP Physician Assistant; Visit Provider Internal Medicine
DX: M54.50 Low back pain, unspecified (principal); M79.605 Pain in left leg

== ENCOUNTER → 2025-07-17 09:56 | Outpatient (BNV) | payer OTHER, SELFPAY | PROVIDERS: PCP Physician Assistant; Visit Provider Radiology Diagnostic Radiology | DX: M43.17 Spondylolisthesis, lumbosacral region (principal) | CPT/HCPCS: 72100 ==

== ENCOUNTER 2025-09-03 11:18 | Outpatient (AMB) | payer OTHER, SELFPAY ==
--- NOTE | 2025-09-03 11:20 | A.OFFVIS_ITS ---
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 The pain has been present for over a month and radiates to the back of the buttock, left side of the leg, and toes, accompanied by numbness and tingling in his left heel and toes. The pain affects daily activities, mobility, and sleep, worsening with walking and prolonged sitting. The patient denies any history of back injuries, injections, or spine surgeries. 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 Due to significant pain, he had to take a few days off from work. The patient was referred to physical therapy and a lumbar spine MRI was ordered and is in the process of being scheduled. He reports using a short script of oxycodone, which alleviates his pain and improves sleep, and Tylenol, Ibuprofen and diclofenac sodium provides minimal relief. Medrol Connor also provided some temporary relief. X-ray findings indicate lumbar disc degeneration at L5-S1, arthritis with bone s purs, and a concern for slippage at L5-S1. The patient has numbness in the toes and altered gait due to favoring the left side. - Onset: Pain has been present for over a month. - Quality: Described as throbbing, aching, and radiating. - Location: Radiates to the back of the buttock, left side of the leg, and toes. - Exacerbating factors: Worsens with walking, sitting, climbing stairs, heavy lifting, and bending. - Relieving factors: Oxycodone alleviates pain and improves sleep; diclofenac sodium provides minimal relief. - Interference: Affects daily activities, mobility, and sleep. - Affect: Pain impacts daily activities, mobility, and sleep. - Analgesia: Oxycodone provides relief and improves sleep; diclofenac sodium offers minimal relief. - Adverse Effects: Excessive use of ibuprofen and Tylenol affected the stomach. - Activities of Daily Living: Pain affects work, requiring days off and modification of tasks. - Aberrant Drug Related Behaviors: No signs of medication misuse reported. Oswestry Low Back Pain Disability Score=18 PFSH Medical History Elevated LFTs GERD (gastroesophageal reflux disease) Back pain COPD (chronic obstructive pulmonary disease) Asthma Surgical History History of esophagogastroduodenoscopy (EGD) H/O colonoscopy Family History Father Alzheimer disease Social History Housing: House Are you a primary home care attendant to a significant other at home: Yes Do you presently have visiting nurse or other home services: No Alcohol intake: current Alcohol intake frequency: 0-2 drinks per day Alcohol type: beer Patient Tobacco Use Status: Former Tobacco user Tobacco use type: Cigarette e-Cigarette/Vaping Use: Never Used Second Hand Smoke Exposure: No service: No Current occupational status: employed Current occupation: [employer] Current occupational exposures/hazards: No Cognitive needs: No Hearing needs: No Vision needs: Yes Review of Systems Const Details: - Musculoskeletal: Reports chronic low back pain with radiation to left buttock and down into the left posterior and lateral lower leg, with numbness, and tingling. - Neurological: Reports numbness and tingling in the toes, reports intermittent weakness LLE, denies bladder or bowel dysfunction or saddle anesthesia. All systems reviewed & are unremarkable except as noted in HPI and below Physical Exam Vital Signs: Last Vital Signs Pulse 79 09/03/25 11:25 BP 165/111 H 09/03/25 11:25 Pulse Ox 95 09/03/25 11:25 Oxygen Delivery Method Room Air 09/03/25 11:25 BMI result Body Mass Index 23.7 General: Appears afebrile. Alert and oriented. Mood and affect appropriate. Follows and participates in conversation appropriately. Respiratory effort is unlabored. No cough. Able to transition from sit to stand unassisted. Ambulates with antalgia gait, with normal heel strike and toe off on the right, pain increase in back and left leg with toe/heel standing. Difficulty rising from sitting position due to left sided low back pain. General: Yes no CVA tenderness Back/Spine/Pelvis Other: Limited lumbar ROM due to pain. Lumbar flexion and extension reproduces moderate to severe pain, worse with flexion forward and bending. Demonstrates 5/5 right and 4/5 left strength of quadriceps bilaterally as well as flexion/dorsiflexion of bilateral feet against resistance. 2+ pedal pulses bilaterally. Straight leg rise with dorsiflexion positive on the left. +2 patellar and +1 achilles reflexes bilaterally. Facet loading test positive bilaterally. Robinson?s, Gaenslen, Pelvic compression and Stinchfield tests are positive on the left. Mild groin pain with I/E hip rotations bilaterally. Valsalva maneuver is positive. Back: no CVA tenderness Cervical Spine: cervical ROM normal, No Cervical spine scars present, No Cervical spine tenderness and No step off deformity Thoracic/Lumbar Spine: thoracic and lumbar spine normal to inspection, Thoracic/lumbar spine scar(s), Lasegue's sign positive on the left and localized, pain with thoraco-lumbar ROM, paraspinal muscle tenderness on the left greater than right, thoraco-lumbar ROM limited, No thoracic spinal tenderness and lumbar spinal tenderness (L4-S1) Pelvis: buttock tenderness on the left Sacroiliac joints: on the right nontender and on the left tender to palpation Extrem General: Yes capillary refill normal, Yes no clubbing, cyanosis or edema and Yes no calf tenderness Results Reviewed Results Reviewed: XR LUMBOSACRAL SPINE 07/17/25 CLINICAL INFORMATION: M54.50 - Low back pain, unspecified FINDINGS: Endplate sclerosis at multiple levels of the axial skeleton. Decreased intervertebral disc height at L5-S1. Small marginal osteophyte formation at multiple levels with syndesmophyte formation at L3-4. Facet joint hypertrophy at L5-S1. Questionable grade 1 retrolisthesis L5-S1. Degenerative changes in the coxofemoral joints. IMPRESSION: Multilevel spondylosis pronounced at L5-S1 with questionable grade 1 retrolisthesis. Assessment & Plan Assessment & Plan (1) Lumbar pain with radiation down left leg: Code(s): M54.50 - Low back pain, unspecified; M79.605 - Pain in left leg Category: Medical (2) Lumbar spinal stenosis: Code(s): M48.061 - Spinal stenosis, lumbar region without neurogenic claudication Category: Medical (3) Lumbar degenerative disc disease: Code(s): M51.36 - Other intervertebral disc degeneration, lumbar region Category: Medical (4) Spondylolisthesis, lumbar region: Code(s): M43.16 - Spondylolisthesis, lumbar region Category: Medical (5) Lumbosacral spondylosis: Code(s): M47.817 - Spondylosis without myelopathy or radiculopathy, lumbosacral region Category: Medical Plan The plan includes scheduling urgent lumbar MRI to further evaluate the lumbar spine for potential disc herniation or nerve compression, and follow up on concern for grade 1 retrolisthesis on recent xray imaging. Physical therapy will be initiated after the MRI to address the chronic low back pain and acute left radiculopathy, contingent on the MRI results. Gabapentin has been prescribed to manage radiculopathy symptoms, with instructions to avoid alcohol and driving or operate heavy machinery due to potential adverse effects. The patient is advised to modify activities to prevent exacerbation of symptoms and to consider therapeutic WILI injections if MRI findings indicates central or neuroforaminal narrowing. In the event of significant nerve compression and disc herniation, referral to a Neurosurgeon may be necessary. Patient is aware to call if pain worsens or if he develops any red flag symptoms to seek emergency care. Patient denies any cauda equina syndrome symptoms at this time. Patient advised to avoid heavy lifting, bending or twisting. All questions and concerns have been answered and patient agreed with the treatment plan. Follow up for MRI results and sooner as needed. Patient was informed and verbally consented to the use of an ambient scribe for clinic note documentation during this visit. Medications: New gabapentin 300 mg PO BID 60 caps 0RF pain 30 days M48.061 - Spinal stenosis, lumbar region without neurogenic claudication, M51.36 - Other intervertebral disc degeneration, lumbar region, M54.50 - Low back pain, unspecified, M79.605 - Pain in left leg Coding Level of Care Code New Pt Level 4 (49927) Diagnoses Lumbar pain with radiation down left leg M54.50; M79.605 Lumbar spinal stenosis M48.061 Lumbar degenerative disc disease M51.36 Spondylolisthesis, lumbar region M43.16 Lumbosacral spondylosis M47.817
[2025-09-03 11:25] VITALS: BP 165/111; PULSE 79; O2SAT 95; BMI 23.7
--- OUTSIDE RECORDS SUMMARY | 2025-09-03 14:31 | XMS_ITS | Patient Health Record ---
Author Organization [facility] Address [address] [place] [id number] Care Team Providers Care Security Administrator Name Role Phone Luke Alvarez Primary Care Provider Unavailab Urban Burrell Unavailable [phone] Allergies Allergen (clinical drug ingredient) Drug/Non Drug [...] Albuterol Sulfate HFA 108 (90 Base) MCG/ACT Inhalation; Duration: 17 Active Montelukast Sodium 10 MG Oral; Duration: 30 Active Multivitamin - as directed Orally [...] Problem Status W/U Status Risk Notes Problem Screening for malignant neoplasm of colon (936987242) Encounter for screening for malignant neoplasm of colon (Z12.11) Active confirmed Problem History of adenomatous polyp of colon (211655516) History of adenomatous polyp of colon (Z86.010) Active confirmed Problem History of polyp of colon (situation) (951275389) Personal history of colonic polyps (Z86.010) Active confirmed Problem Gastroesophageal reflux disease with esophagitis (408813220) Gastroesophageal reflux disease with esophagitis (K21.0) Active confirmed Problem Preprocedural examination (417487398362190) Preprocedural examination (Z01.818) Active confirmed Problem Gastroesophageal reflux disease (650920248) GERD (gastroesophageal reflux disease) (K21.9) Active confirmed Problem Diverticulosis of colon (163783247) Diverticulosis of colon (K57.30) Active confirmed Plan Of Treatment Future Test Test Name Order Date UPPER GI ENDOSCOPY 08/07/2013 COLONOSCOPY 08/07/2013 COLONOSCOPY 07/04/2018 COLONOSCOPY 12/18/2019 COLONOSCOPY 06/11/2022 Insurance Providers Payer Name Payer Address Payer Phone Subscriber Number Group Number Insured Name Patient Relationship to Insured Coverage Start Date Coverage End Date [facility] [address] [facility] [place] [phone] [id number] URBAN LIU Self - patient is the insured Medical (General) History Medical History History ICD Code Asthma/COPD Denies [place],DM,CVA,renal disease Chronic back pain-s/p epidurals GERD--EGD in [...]
== END 2025-09-03 11:44 | disposition home or self-care (01) ==
LOC: HO.PMC 11:19
PROVIDERS: PCP Physician Assistant; Visit Provider Nurse Practitioner Family
DX: M54.50 Low back pain, unspecified (principal); M79.605 Pain in left leg; M48.061 Spinal stenosis, lumbar region without neurogenic claudication; M51.369 Other intervertebral disc degeneration, lumbar region without mention of lumbar back pain or lower extremity pain; M43.16 Spondylolisthesis, lumbar region; M47.817 Spondylosis without myelopathy or radiculopathy, lumbosacral region
CPT/HCPCS: 99204

== ENCOUNTER 2025-09-05 07:51 | Outpatient (AMB) | payer OTHER, SELFPAY ==
--- OUTSIDE RECORDS SUMMARY | 2025-09-05 07:56 | XMS_ITS | Patient Health Record ---
Author Organization [facility] Address [address] [place] [id number] Care Team Providers Care Entertainment Musician Name Role Phone Luke Alvarez Primary Care Provider Unavailab Urban Burrell Unavailable [phone] Allergies Allergen (clinical drug ingredient) Drug/Non Drug [...] Problem Screening for malignant neoplasm of colon (657989386) Encounter for screening for malignant neoplasm of colon (Z12.11) Active confirmed Problem History of adenomatous polyp of colon (403739736) History of adenomatous polyp of colon (Z86.010) Active confirmed Problem History of polyp of colon (situation) (980140727) Personal history of colonic polyps (Z86.010) Active confirmed Problem Gastroesophageal reflux disease with esophagitis (284192215) Gastroesophageal reflux disease with esophagitis (K21.0) Active confirmed Problem Preprocedural examination (927592479875715) Preprocedural examination (Z01.818) Active confirmed Problem Gastroesophageal reflux disease (823204110) GERD (gastroesophageal reflux disease) (K21.9) Active confirmed Problem Diverticulosis of colon (424213107) Diverticulosis of colon (K57.30) Active confirmed Plan Of Treatment Future Test Test Name Order Date UPPER GI ENDOSCOPY 08/07/2013 COLONOSCOPY 08/07/2013 COLONOSCOPY 07/04/2018 COLONOSCOPY 12/18/2019 COLONOSCOPY 06/11/2022 Insurance Providers Payer Name Payer Address Payer Phone Subscriber Number Group Number Insured Name Patient Relationship to Insured Coverage Start Date Coverage End Date [facility] [address] [facility] [place] [phone] [id number] URBAN LIU Self - patient is the insured Medical (General) History Medical History History ICD Code Asthma/COPD Denies [place],DM,CVA,renal disease Chronic back pain-s/p epidurals GERD--EGD in [...]
[2025-09-05 08:05] VITALS: BP 138/92; PULSE 82; TEMP 36.4; O2SAT 92; BMI 23.4
--- NOTE | 2025-09-05 08:05 | MHC.PC.OV ---
Vital Signs 09/05/25 08:05 Height 5 ft 10 in Weight 163 lb 2 oz BMI 23.4 BP 138/92 H Blood Pressure Location Lt brachial Position Sitting Pulse 82 Pulse Source Pulse Oximeter Temp 97.5 F Temp Source Temporal Artery Scan Pulse Oximetry (%) 92 Oxygen Delivery Method Room Air Intake Visit Reasons: Annual Exam Allergies No Known Allergies Allergy (Verified 09/05/25 08:14) Medication List - Last Reconciled 09/05/25 by Luke Alvarez PA-C albuterol sulfate 2.5 mg (3 mL) inhalation Q6H PRN 30 days albuterol sulfate 90 mcg/actuation 2 puffs inhalation Q4-6H PRN 90 days diclofenac sodium 75 mg PO BID 10 days gabapentin 300 mg PO BID 30 days lisinopril 5 mg PO DAILY 90 days montelukast 10 mg PO DAILY 90 days multivitamin 1 tab PO DAILY omeprazole 40 mg PO DAILY oxycodone 5 mg PO Q8H PRN 5 days valacyclovir (Valtrex) 1,000 mg PO BID PRN 7 days Tobacco use date assessed: 09/05/25 Dental Screening Dental Screen Date: 09/05/25 Did you have a dental visit in the last 12 months?: No Did you have a dental problem in the last 6 months where you did not have access to dental care?: No Was dental information given to patient?: Patient has dentist HPI Annual Exam HPI Details Patient is a 60-year-old male here today for routine annual physical.? Patient has a past medical history significant for COPD, former smoker, GERD.. Concern--> lumbar disc disease He reports an over one-month history of severe lower lumbar spine pain, which began suddenly in early July. The pain is associated with radiculopathy, described as numbness into his leg and weakness causing an inability to flex his ankle. The pain is severe enough to disrupt his sleep and leaves him feeling physically drained. An X-ray of his lower back revealed degenerative changes, including arthritis, disc compression, and bone spurs at L4, L5, and S1, with suspicion of a pinched nerve. Previous treatments include ibuprofen, which caused stomach upset, and a course of Percocet, which provided significant pain relief and allowed him to sleep. He also tried gabapentin for two days but stopped due to feeling 'loopy,' and found that prednisone was helpful. An MRI has been approved but has not yet been scheduled, and he has not had any physical therapy. Hypertension: Noted slightly elevated blood pressure today in office. Likely due to his current lower lumbar spine pain. Continues on lisinopril 5 mg, had a few cups of coffee this morning. Does not monitor his blood pressure at home is willing to start doing so. Will consider increasing his lisinopril to 10 mg if blood - remain above 140 systolic . He denies any headaches, chest discomforts or shortness of breath. .. Borderline high cholesterol: Most recent lipids showing high cholesterol -272. Patient admits to some dietary indiscretion. Patient will work better eating habits to reduce his cholesterol .. COPD: Quit smoking in 2020, Report his breathing is stable. Continues to abstain from cigarette smoking. Has been compliant with his maintenance inhaler and p.r.n. use of his albuterol inhaler. .. Former smoker:? Quit smoking in 2020, Did smoke for little over 20 years, unclear if he has smoked a pack a day.? He is likely a candidate for lung cancer screening and is considering being referred. - Colonoscopy: Done in 2021, repeat 3 years for surveillance- Dr. Talbot Vaccines: Up-to-date with COVID vaccine , up-to-date with pneumonia vaccine, considering shingles , will get FLu shot [facility] Medical History Elevated LFTs GERD (gastroesophageal reflux disease) Back pain COPD (chronic obstructive pulmonary disease) Asthma Surgical History History of esophagogastroduodenoscopy (EGD) H/O colonoscopy Family History Father Alzheimer disease Social History Housing: House Are you a primary healthcare consultant to a significant other at home: Yes Do you presently have visiting nurse or other home services: No Alcohol intake: current Alcohol intake frequency: 0-2 drinks per day Alcohol type: beer Patient Tobacco Use Status: Former Tobacco user Tobacco use type: Cigarette e-Cigarette/Vaping Use: Never Used Second Hand Smoke Exposure: No service: No Current occupational status: employed Current occupation: [employer] Current occupational exposures/hazards: No Cognitive needs: No Hearing needs: No Vision needs: Yes Questionnaire PHQ-9 Over the last 2 weeks, how often have you been bothered by any of the following problems? 1. Little interest or pleasure in doing things: not at all 2. Feeling down, depressed, or hopeless: not at all 3. Trouble falling or staying asleep, or sleeping too much: not at all 4. Feeling tired or having little energy: not at all 5. Poor appetite or overeating: not at all 6. Feeling bad about yourself - or that you are a failure or have let yourself or your family down: not at all 7. Trouble concentrating on things, such as reading the newspaper or watching television: not at all 8. Moving or speaking so slowly that other people could have noticed. Or the opposite - being so fidgety or restless that you have been moving around a lot more than usual: not at all 9. Thoughts that you would be better off or of hurting yourself in some way: not at all Total score: 0 Depression Screening Interpretation: Negative Depression Screening Done: Yes 17800 - PHQ-9 Billing: Yes Source: Developed by Drs. Richar Zuniga, Vicenta Lopez, Ghanshyam Karimi and colleagues, with an educational amanda from [employer]. Thrive Questionnaire Date Thrive assessed: 04/22/25 I am a: Patient What is your living situation today?: I have a steady place to live Within the past 12 months, did the food you bought not last and you didn't have the money to get more?: Never true Within the past 12 months, did you worry whether your food would run out before you got money to buy more?: Never true Do you have trouble paying for medicines?: No Do you have trouble getting transportation to medical appointments?: No Do you have trouble paying your heating and electricity bill?: No Do you have trouble taking care of your child, family member or friend?: No Do you have trouble with day-to-day activities such as bathing, preparing meals, shopping, managing finances, etc.?: No Are you currently unemployed and looking for a job?: No Are you interested in more education?: No Please select the resources that you would like help with: None Currently or been in a relationship where the following occur: No concerns reported THRIVE Score: 0 AUDIT C Alcohol Use Questionnaire (AUDIT-C) 1. How often do you have a drink containing alcohol?: 2-3 times a week 2. How many drinks containing alcohol do you have on a typical day when you are drinking?: 1 or 2 3. How often do you have six or more drinks on one occasion?: Monthly Total Score: 5 JESSICA-7 AMB Questionnaire JESSICA-7 Date JESSICA - 7 assessed: 04/22/25 Feeling nervous, anxious, or on edge: 0 = Not at all Not being able to stop or control worryin = Not at all Worrying too much about different things: 0 = Not at all Trouble relaxin = Not at all Being so restless that it is hard to sit still: 0 = Not at all Becoming easily annoyed or irritable: 0 = Not at all Feeling afraid as if something awful might happen: 0 = Not at all Total JESSICA-7 score (0-4 normal; 5-9 mild; 10-14 moderate; 15-21 severe): 0 Source: Developed by Drs. Richar Zuniga, Vicenta Lopez, Ghanshyam Karimi and colleagues, with an educational amanda from [employer]. Review of Systems Const Denies body aches, Denies chills, Denies excessive sweating, Denies fatigue, Denies fever(s) and Denies headache(s) Eyes Denies blurry vision ENT Denies dysphagia, Denies vertigo, Denies dizziness, Denies headache(s), Denies hearing loss and Denies tinnitus Card Denies chest pain, Denies chest pain with activity, Denies syncope, Denies irregular heart rhythm and Denies dyspnea Resp Denies chest congestion, Denies cough, Denies hemoptysis, Denies dyspnea and Denies wheezing GI Denies abdominal pain, Denies melena, Denies hematochezia, Denies coffee ground emesis, Denies dysphagia, Denies diarrhea, Denies nausea and Denies vomiting Denies difficulty urinating, Denies dysuria, Denies urinary frequency, Denies urinary hesitancy and Denies urinary urgency Musc Reports back pain, Denies arthralgias, Denies limited range of motion, Denies muscle cramps, Denies muscle weakness, Reports numbness and Reports radiating pain into limb Skin/Breast Denies rash and Denies skin ulcer Neuro Denies Abnormal speech present, Denies confusion, Denies vertigo, Denies dizziness, Denies syncope, Denies headache(s), Denies memory loss, Reports numbness and Denies seizure-like activity Psych Denies anxiety, Denies confusion, Denies depression, Denies memory loss, Denies panic attacks and Denies paranoia Endo Denies excessive sweating, Denies fatigue, Denies flushing, Denies polydipsia and Denies polyuria Aller/Immun Denies wheezing Physical exam (Primary Care) Vital Signs: Last Vital Signs Temp 97.5 F 09/05/25 08:05 Pulse 82 09/05/25 08:05 BP 138/92 H 09/05/25 08:05 Pulse Ox 92 09/05/25 08:05 Oxygen Delivery Method Room Air 09/05/25 08:05 BMI result Body Mass Index 23.4 Tobacco/Smoking Status: Tobacco use Status Tobacco use date assessed 09/05/25 09/05/25 08:09 Patient Tobacco Use Status Former Tobacco user 09/05/25 08:09 Tobacco use type Cigarette 09/05/25 08:09 e-Cigarette/Vaping Use Never Used 09/05/25 08:09 PHQ-9: PHQ-9 Score PHQ-9: Total score 0 09/05/25 08:09 Depression Screening Interpretation: Negative Thrive Assessment: Date of Thrive Assessment Date Thrive assessed 04/22/25 09/05/25 08:09 Currently or been in a relationship where the following occur: No concerns reported Const General: cooperative, comfortable, no acute distress, alert and awake; No confusion Orientation/consciousness: oriented to person, oriented to place, patient oriented x3 and No confusion HENMT Head: Yes normocephalic Ears: external ears normal and TM's normal bilaterally Face and sinus: No sinus tenderness Mouth: Normal oral and palatal mucosa present and tongue normal Teeth and gingiva: dentition normal and gingiva normal Throat: Yes posterior oropharynx normal, Yes tonsils normal and Yes uvula midline Eyes Conjunctivae: conjunctivae normal Sclerae: sclerae normal Pupils: Equal, round and reactive pupils present EOM: EOMs intact bilaterally Direct Ophthalmoscopy: No no photophobia Neck Neck: Yes no lymphadenopathy, No tender and Yes no JVD Thyroid: Thyroid normal Carotids: no bruits Chest Chest palpation & inspection: no tenderness Resp Effort & Inspection: normal respiratory effort, no audible wheezes, not labored and no stridor Auscultation: no crackles, no rales, no rhonchi and no wheezes Cardio Jugular venous distension: no JVD Rate: regular rate, not bradycardic and not tachycardic Rhythm: regular rhythm Bruits: no carotid bruits Peripheral pulses: Peripheral pulses 2+ throughout GI Inspection: Yes normal to inspection, No abdominal wall ecchymosis and No visible herniation Palpation (GI): Soft to palpation, nontender, no guarding, not rigid and No hepatosplenomegaly present Auscultation: normoactive bowel sounds General: Yes no CVA tenderness Back/Spine/Pelvis Other: LIMITED RANGE OF MOTION OF LUMBAR SPINE DUE TO PAIN AND STIFFNESS, POSITIVE PAIN WITH STRAIGHT LEG RAISE ON LEFT SIDE. PATIENT AMBULATING WITH AN ANTALGIC GAIT Back: no CVA tenderness and No back tenderness Cervical Spine: cervical ROM normal Thoracic/Lumbar Spine: thoracic and lumbar spine normal to inspection, straight leg raise negative bilaterally, No thoraco-lumbar ROM limited and No lumbar spinal tenderness Skin Lesions: no lesions Rashes: no rashes Wounds: no wounds Neuro General: oriented to person, oriented to place, patient oriented x3, CN's II-XI intact bilaterally and No confusion Cranial nerves: Yes Equal, round and reactive pupils present and Yes Normal accommodation reflex present Cognition (Neuro): normal cognition Speech: No Abnormal speech present Gait exam (Neuro): Normal gait present Motor exam (neuro): 5/5 motor strength present throughout Extrem Other: LEFT ANKLE AND FOOT NOTED NEUROMUSCULAR WEAKNESS WITH 2/5 STRENGTH TO ACTIVE FLEXION AND EXTENSION COMPARED TO 5/5 RIGHT ANKLE AND FOOT FLEXION AND EXTENSION Right upper extremity: full ROM; no cyanosis Left upper extremity: full ROM; no cyanosis Right lower extremity: no edema Left lower extremity: no edema Psych Appearance: grossly normal Mental Status: mental status grossly normal Affect: normal affect Attitude: cooperative Thought process: Normal thought process present Coding Level of Care Code Est Pt Prev Care 40-64y(04288) Diagnoses Annual physical exam Z00.00 Impaired glucose metabolism R73.09 Primary hypertension I10 Hypertension type: primary hypertension Tubular adenoma of colon D12.6 Mild intermittent asthma without complication J45.20 Asthma severity: mild Asthma persistence: intermittent Asthma complication type: uncomplicated Chronic bronchitis, unspecified chronic bronchitis type J42 COPD type: chronic bronchitis Chronic bronchitis type: unspecified Mixed hyperlipidemia E78.2 Hyperlipidemia type: mixed hyperlipidemia Lumbar degenerative disc disease M51.36 Additional Codes PHQ-9 - 39467 - PHQ-9 Billing: Yes ([id number]) Assessment & Plan Assessment & Plan (1) Annual physical exam: Code(s): Z00.00 - Encounter for general adult medical examination without abnormal findings Category: Medical Plan: PER HPI (2) Impaired glucose metabolism: Code(s): R73.09 - Other abnormal glucose Category: Medical Plan: When he has breakouts. Most recent fasting blood sugar slightly elevated, A1c within normal range. He will continue working on lifestyle and dietary modifications to reduce his fasting blood sugar. (3) HTN (hypertension): Code(s): I10 - Essential (primary) hypertension Category: Medical Qualifiers: Hypertension type: primary hypertension Qualified Code(s): I10 - Essential (primary) hypertension Plan: Patient's blood pressure slightly elevated today in office. LIKELY DUE TO HIS CURRENT LOWER LUMBAR SPINE PAIN He continues with lisinopril 5 mg. He does not monitor his blood pressure at home. He feels he may have white coat hypertension though will start monitoring blood pressure at home. Will continue his current dose of lisinopril with goal blood pressure to remain below 140/90 (4) Tubular adenoma of colon: Code(s): D12.6 - Benign neoplasm of colon, unspecified Category: Medical Plan: Patient is in need of a repeat colonoscopy in 2024. Did have a history of a flat tubular adenoma polyp years back. Followed by Dr. Talbot (5) Asthma: Code(s): J45.909 - Unspecified asthma, uncomplicated Category: Medical Qualifiers: Asthma severity: mild Asthma persistence: intermittent Asthma complication type: uncomplicated Qualified Code(s): J45.20 - Mild intermittent asthma, uncomplicated Plan: Patient reports his asthma is fairly well controlled. Has been much better since he has stopped smoking in 2020. Does use an albuterol inhaler and allergy medication which has helped him significantly as well. (6) COPD (chronic obstructive pulmonary disease): Code(s): J44.9 - Chronic obstructive pulmonary disease, unspecified Category: Medical Qualifiers: COPD type: chronic bronchitis Chronic bronchitis type: unspecified Qualified Code(s): J42 - Unspecified chronic bronchitis Plan: Patient reports his COPD has not been bothersome. Continues with the use of an albuterol inhaler as needed otherwise has not had any exacerbations. He has been years without smoking (7) Hyperlipidemia: Code(s): E78.5 - Hyperlipidemia, unspecified Category: Medical Qualifiers: Hyperlipidemia type: mixed hyperlipidemia Qualified Code(s): E78.2 - Mixed hyperlipidemia Plan: Patient most recent fasting lipid panel showing very elevated total cholesterol and LDL. He declines starting cholesterol medication at this time. He will work on dietary modifications and if cholesterol remains elevated will start low-dose statin therapy. Goal LDL is to be below 130 (8) Lumbar degenerative disc disease: Code(s): M51.36 - Other intervertebral disc degeneration, lumbar region Category: Medical Plan: For the patient's lower back pain with radiculopathy, a stat order for an MRI of the lumbar spine will be placed to determine the etiology of his symptoms. To manage his severe pain and insomnia, a prescription for Percocet will be provided for short-term use, particularly at night. A prednisone taper will also be prescribed to address the inflammation likely contributing to his nerve compression. The patient's needle phobia was noted, and he was reassured that medication could be provided for anxiety if future injections are needed. Orders: Orders MR lumbar spine wo con Today M51.36 - Other intervertebral disc degeneration, lumbar region Medications: New prednisone take 3 tabs x 3 days , take 2 tabs x3 days, 1 tablet x3 days 10 mg PO DIRECTED 18 tabs 0RF 9 days M51.36 - Other intervertebral disc degeneration, lumbar region Refilled albuterol sulfate 90 mcg/actuation 2 puffs inhalation Q4-6H PRN 3 inhalers 1RF shortness of breath or wheezing 90 days J42 - Unspecified chronic bronchitis oxycodone Partial Fill upon patient request. 5 mg PO Q8H PRN 15 tabs 0RF pain 5 days M54.50 - Low back pain, unspecified, M79.605 - Pain in left leg
== END 2025-09-05 08:37 | disposition home or self-care (01) ==
LOC: HO.HMCH 07:51
PROVIDERS: PCP Physician Assistant; Visit Provider Physician Assistant
DX: Z00.00 Encounter for general adult medical examination without abnormal findings (principal); J42 Unspecified chronic bronchitis; R73.09 Other abnormal glucose; I10 Essential (primary) hypertension; D12.6 Benign neoplasm of colon, unspecified; J45.20 Mild intermittent asthma, uncomplicated; E78.2 Mixed hyperlipidemia; M51.369 Other intervertebral disc degeneration, lumbar region without mention of lumbar back pain or lower extremity pain

== ENCOUNTER → 2025-09-05 07:51 | Outpatient (BNVA) | payer OTHER, SELFPAY | PROVIDERS: PCP Physician Assistant; Visit Provider Physician Assistant | DX: Z00.00 Encounter for general adult medical examination without abnormal findings (principal); K21.9 Gastro-esophageal reflux disease without esophagitis; I10 Essential (primary) hypertension; R73.09 Other abnormal glucose; J45.20 Mild intermittent asthma, uncomplicated; D12.6 Benign neoplasm of colon, unspecified; J42 Unspecified chronic bronchitis; E78.2 Mixed hyperlipidemia; M51.369 Other intervertebral disc degeneration, lumbar region without mention of lumbar back pain or lower extremity pain; Z87.891 Personal history of nicotine dependence | CPT/HCPCS: 96127 ==

== ENCOUNTER 2025-10-05 09:41 | Outpatient (REF) | payer OTHER, SELFPAY ==
--- NOTE | ~2025-10-05 | MR_ITS ---
CLINICAL HISTORY: M54.50 - Low back pain, unspecified --- Additional Notes or Special Instructions: Multilevel spondylosis pronounced at L5-S1 with questionable grade 1 Exam: MRI lumbar spine without IV contrast, incomplete Comparison: None Findings: Exam was terminated before completion due to patient's claustrophobia. Total of 152 images including 136 manager security and safety images and 15 sagittal T1 images. 2 mm retrolisthesis L5-S1, no spondylolysis. No acute fracture or chronic compression deformity of the lumbar vertebrae. L2 and T12 vertebral T1 hyperintense lesions 1.5 cm and 1.3 cm respectively. Multilevel prevertebral osteophytes. Mild facet arthrosis of the lower lumbar spine. L4-5 and L5-S1 mild diffuse posterior disc bulge, causing mild central canal stenosis at L4-5, mild foraminal narrowing bilaterally L4-5 and L5-S1. T12-L1 to L3-4 demonstrate no apparent disc protrusion or bulge, no significant central canal stenosis or foraminal narrowing. Paraspinal musculature are unremarkable. Impression: 1. Incomplete exam. 2. 2 mm retrolisthesis L5-S1 and mild degenerative spondylosis of the lumbar spine. 3. T1 hyperintense vertebral lesions T12 and L2, indeterminate, probably hemangiomas, CT exam can be helpful for further evaluation. This document has been electronically signed by: Ericka Childress MD on 10/07/2025 13:16:17
--- OUTSIDE RECORDS SUMMARY | 2025-10-05 09:46 | XMS_ITS | Patient Health Record ---
Author Organization [facility] Address [address] [place] [id number] Care Team Providers Care Project Controls Specialist Name Role Phone Luke Alvarez Primary Care Provider Unavailab Urban Burrell Unavailable [phone] Allergies Allergen (clinical drug ingredient) Drug/Non Drug Allergy documented on EMR Reaction Allergy Type Onset Date Status Information temporarily unavailable cats and dogs (uncoded) Unknown Allergy Active Reason For Referral No Information Medications Medication SIG (Take, Route, Frequency, Duration) Notes Start Date End Date Status Advair Diskus 250-50 MCG/ACT Aerosol Powder Breath Activated 1 puff Inhalation Twice a day Active Motrin 800 one tablet as needed as needed Active Albuterol Sulfate HFA 108 (90 Base) MCG/ACT Aerosol Solution Inhalation; Duration: 17 Active Montelukast Sodium 10 MG Tablet Oral; Duration: 30 Active Multivitamin - - as directed Orally once a day Active Omeprazole Magnesium 20 MG Tablet Delayed Release 1 tablet Orally Once a day/ as needed Active Singulair 10MG Not-T aking/PRN Immunizations Vaccine Route Administration Date Status Comme nts Influenza Unknown 08/07/2019 Administered Influenza Unknown 07/08/2021 Administered Social History Tobacco Use: Social History Observation Description Date Details (start date - stop date) Former Smoker NA - NA Social History Drugs/Alcohol: Social Info Question Answer Notes Alcohol Screen Did you have a drink containing alcohol in the past year? Yes How often did you have a drink containing alcohol in the past year? 2 to 3 times a week (3 points) How many drinks did you have on a typical day when you were drinking in the past year? 3 or 4 drinks (1 point) How often did you have 6 or more drinks on one occasion in the past year? Never (0 point) Points 4 Interpretation Positive Tobacco Use: Social Info Question Answer Notes Tobacco Use/Smoking Patient is a former smoker How long has it been since you last smoked? 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 [employer] Notes: Smoker; 2-3 beers QOD Smoker-not daily; 2-3 beers QOD Smoker-but quit on 11/07/2019; 2-3 beers QOD Smoker-but quit on 11/07/2019; 2-3 beers QOD Problems Problem Type SNOMED Code ICD Code Onset Dates Problem Status W/U Status Risk Notes Problem Information temporarily unavailable Encounter for screening for malignant neoplasm of colon (Z12.11) Active confirmed Problem Information temporarily unavailable History of adenomatous polyp of colon (Z86.010) Active confirmed Problem Information temporarily unavailable Personal history of colonic polyps (Z86.010) Active confirmed Problem Information temporarily unavailable Gastroesophageal reflux disease with esophagitis (K21.0) Active confirmed Problem Information temporarily unavailable Preprocedural examination (Z01.818) Active confirmed Problem Information temporarily unavailable GERD (gastroesophageal reflux disease) (K21.9) Active confirmed Problem Information temporarily unavailable Diverticulosis of colon (K57.30) Active confirmed Plan Of Treatment Future Test Test Name Order Date UPPER GI ENDOSCOPY 08/07/2013 COLONOSCOPY 08/07/2013 COLONOSCOPY 07/04/2018 COLONOSCOPY 12/18/2019 COLONOSCOPY 06/11/2022 Insurance Providers Payer Name Payer Address Payer Phone Subscriber Number Group Number Insured Name Patient Relationship to Insured Coverage Start Date Coverage End Date [facility] [address] [facility] [place]AND [phone] [id number] URBAN LIU Self - patient is the insured Medical (General) History Medical History History ICD Code Asthma/COPD Denies NE,DM,CVA,renal disease Chronic back pain-s/p epidurals GERD--EGD in [...]
== END 2025-10-05 09:42 | disposition home or self-care (01) ==
LOC: HO.MRI 09:41
PROVIDERS: PCP Physician Assistant; Visit Provider Physician Assistant
DX: M47.816 Spondylosis without myelopathy or radiculopathy, lumbar region (principal); M79.605 Pain in left leg
CPT/HCPCS: 72148

== ENCOUNTER → 2025-10-05 09:48 | Outpatient (BNV) | payer OTHER, SELFPAY | PROVIDERS: PCP Physician Assistant; Visit Provider Radiology Diagnostic Radiology | DX: M47.817 Spondylosis without myelopathy or radiculopathy, lumbosacral region (principal); S24.114A Complete lesion at T11-T12 level of thoracic spinal cord, initial encounter | CPT/HCPCS: 72148 ==